=== PATIENT | male | born 1940 | race Caucasian/White ===

== ENCOUNTER 2025-02-14 12:46 | Inpatient (IN) ==
--- NOTE | 2025-02-14 13:59 | Emergency Department Note ---
History of Present Illness General Chief complaint: Urinary Symptoms Stated complaint: URINARY SYMPTOMS Time Seen by Provider: 02/14/25 12:53 Source: patient and family Mode of arrival: ambulatory Limitations: no limitations History of Present Illness Patient is an 84-year-old male with history of BPH, hyperlipidemia, diabetes who presents for generalized weakness and fatigue. He says he has been in and out of the hospital multiple times recently secondary to complications related to a recent aquablation of his prostate. He was recently discharged from the hospital for a UTI and has been taking Levaquin. No fevers, chills, chest pain, abdominal pain. He does report some decreased urinary output. He also reports he has an ureteral stent in place on the left. Home Medications Medication Instructions Recorded Confirmed Type allopurinol 100 mg tablet 100 mg PO DAILY 02/19/20 02/14/25 History aspirin 81 mg chewable tablet 81 mg PO DAILY 02/19/20 02/14/25 History cholecalciferol (vitamin D3) 125 125 mcg PO DAILY 02/19/20 02/14/25 History mcg (5,000 unit) capsule (Dialyvite Vitamin D) folic acid 400 mcg tablet 0.4 mg PO DAILY 02/19/20 02/14/25 History magnesium oxide 500 mg capsule 500 mg PO DAILY 02/19/20 02/14/25 History mecobalamin (vitamin B12) 1,000 1,000 mcg PO WK 02/19/20 02/14/25 History mcg chewable tablet (B12 Active) pioglitazone 30 mg tablet 30 mg PO QPM 02/19/20 02/14/25 History pyridoxine (vitamin B6) 50 mg 50 mg PO DAILY 02/19/20 02/14/25 History tablet insulin glargine 100 unit/mL (3 8 unit subcut BID PRN for sugar 02/14/25 02/14/25 History mL) subcutaneous pen (Lantus level Solostar U-100 Insulin) insulin lispro 100 unit/mL 8 unit subcut QPM 02/14/25 02/14/25 History subcutaneous pen isosorbide mononitrate 30 mg 30 mg PO DAILY 02/14/25 02/14/25 History tablet,extended release 24 hr levofloxacin 750 mg tablet 750 mg PO Q48H 02/14/25 02/14/25 History lisinopril 10 mg tablet 10 mg PO DAILY 02/14/25 02/14/25 History metformin 500 mg tablet,extended 500 mg PO BID 02/14/25 02/14/25 History release 24 hr nystatin 100,000 unit/mL oral 5 ml PO QID 02/14/25 02/14/25 History suspension rosuvastatin 20 mg tablet 20 mg PO QPM 02/14/25 02/14/25 History Allergies Allergy/AdvReac Type Severity Reaction Status Date / Time codeine Allergy Unknown Verified 02/14/25 15:29 Past Med/Surg History Problem List (Updated 02/14/25 @ 16:23 by Manuel Gonzalez MD) Complicated urinary tract infection (Acute) BPH with obstruction/lower urinary tract symptoms Heart trouble High cholesterol Gout Diabetes Arthritis Elevated prostate specific antigen (PSA) Medical History (Updated 02/14/25 @ 16:23 by Manuel Gonzalez MD) Cholecystectomy planned 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 Physical Exam Vital Signs Vital Signs - 24 hr 02/14/25 12:48 02/14/25 13:22 02/14/25 14:00 Temperature 36.6 C Temperature Source Temporal Artery Scan Pulse Rate 85 73 67 Pulse Rate [Apical] Pulse Rhythm Regular Pulse Rhythm [Apical] Pulse Strength [Apical] Respiratory Rate 20 18 Respiratory Effort / Characteristics Non-Labored Spontaneous Respiratory Depth Normal Respiratory Pattern Regular Blood Pressure 122/67 Blood Pressure [Right Arm] Blood Pressure Mean 85 Blood Pressure Mean [Right Arm] Blood Pressure Position Sitting Blood Pressure Position [Right Arm] Pulse Oximetry 100 97 Oxygen Delivery Method Room Air Room Air Sepsis Recent Fever Within 48 Hours No Sepsis New/Unexplained Change in Mental Status N/A Sepsis Action Taken by Nursing No Action Required 02/14/25 14:48 Temperature Temperature Source Pulse Rate Pulse Rate [Apical] 68 Pulse Rhythm Pulse Rhythm [Apical] Regular Pulse Strength [Apical] Normal Respiratory Rate 18 Respiratory Effort / Characteristics Non-Labored Spontaneous Respiratory Depth Normal Respiratory Pattern Regular Blood Pressure Blood Pressure [Right Arm] 134/65 Blood Pressure Mean Blood Pressure Mean [Right Arm] 88 Blood Pressure Position Blood Pressure Position [Right Arm] Sitting Pulse Oximetry 98 Oxygen Delivery Method Room Air Sepsis Recent Fever Within 48 Hours Sepsis New/Unexplained Change in Mental Status Sepsis Action Taken by Nursing See below Constitutional WD/WN, vitals as above Respiratory normal respiratory effort, lungs clear to auscultation Cardiovascular RRR, no murmur, no edema Extremities: + edema (2+ pitting edema b/l ) Gastrointestinal (Abdomen) normal bowel sounds, soft, nontender, no hepatosplenomegaly Medical Decision Making Differential Diagnosis DDx includes but not limited to: MDR UTI, pyelonephritis, KAYLA, CHF exacerbation, ACS, hypothyroidism, acute anemia Medical Records Attestation: I reviewed the patient's medical records. Home Medications Current Medication List: was personally reviewed by me Laboratory Data Attestation: I reviewed the patient's lab results. 02/14/25 14:00 02/14/25 14:00 Lab Results 02/14/25 02/14/25 Range/Units 14:00 14:12 WBC 8.14 (4.8-10.8) K/ul RBC 3.27 L (4.70-6.10) M/uL Hgb 9.9 L (14.0-18.0) g/dl Hct 31.4 L (42.0-52.0) % MCV 96.0 (80.0-100.0) fL MCH 30.3 (25.0-34.0) pg MCHC 31.5 L (32.0-36.0) g/dL RDW Std Deviation 61.8 H (36.4-46.3) fL RDW Coeff of [place] 17.7 H (11.5-14.5) % Plt Count 201 (130-400) K/uL MPV 9.2 L (9.4-12.4) fL Immature Gran % (Auto) 1.4 % Neut % (Auto) 69.9 % Lymph % (Auto) 20.9 % Starr % (Auto) 5.9 % Eos % (Auto) 1.5 % Baso % (Auto) 0.4 % Neut # (Auto) 5.70 (1.40-6.50) K/uL Lymph # (Auto) 1.70 (1.20-3.40) K/uL Starr # (Auto) 0.48 (0.11-0.59) K/uL Eos # (Auto) 0.12 (0.00-0.50) K/uL Baso # (Auto) 0.03 (0.00-0.20) K/uL Immature Gran # (Auto) 0.11 (0.01-0.20) K/uL Sodium 142 (136-145) mmol/L Potassium 4.3 (3.5-5.1) mmol/L Chloride 111 H (98-107) mmol/L Carbon Dioxide 23 (21-32) mmol/L Anion Gap 8 (3-11) BUN 35 H (6-23) mg/dl Creatinine 1.99 H (0.6-1.4) mg/dl Est Cr Clr Drug Dosing Not Reportable eGFR 32.50 BUN/Creatinine Ratio 17.6 (10-20) Glucose 179 H (70-99(Fasting)) mg/dl Calcium 8.3 L (8.6-10.3) mg/dl Total Bilirubin 0.3 (0.2-1.0) mg/dl AST 58 H (13-39) U/L ALT 35 (7-52) U/L Alkaline Phosphatase 80 (34-104) U/L Troponin I High Sens 12.2 (0-20) pg/ml B-Natriuretic Peptide 133 H (0-100) pg/ml Total Protein 6.2 (6.0-8.3) gm/dl Albumin 2.5 L (3.4-5.0) gm/dl Globulin 3.7 (2.5-4.0) gm/dl Albumin/Globulin Ratio 0.7 L (0.9-2) TSH 2.758 (0.300-4.500) uIu/ml Urine Color Yellow Urine Appearance Turbid A (Clear) Urine pH 5.0 (4.5-7.5) Ur Specific [place] 1.019 (1.000-1.030) Urine Protein 2+ H (Negative) Urine Glucose (UA) Negative (Negative) Urine Ketones Trace H (Negative) Urine Blood 3+ H (Negative) Urine Nitrite Negative (Negative) Urine Bilirubin Negative (Negative) Urine Urobilinogen Negative (Negative) Ur Leukocyte Esterase 3+ H (Negative) Urine WBC (Auto) >50 H (0-5) /hpf Urine RBC (Auto) 11-20 H (0-2) /hpf U Hyaline Cast (Auto) >20 H (0-2) /lpf U Epithel Cells (Auto) 3-5 H (0-2) /hpf Urine Bacteria (Auto) 2+ H (None Seen) Urine Comment Imaging Data Radiologist's Impression: Chest X-Ray 02/14/25 13:53 EXAM: Radiograph of the Chest 1 View INDICATION: Weakness TECHNIQUE: Frontal view of the chest. COMPARISON: No relevant prior studies available. FINDINGS: Lungs and pleural spaces: Coarse increased interstitial markings appears chronic. No consolidation or pulmonary edema. No pleural effusion or pneumothorax. Heart: Large cardiac shadow. Coronary bypass changes noted. Mediastinum: Normal contour. Bones/joints: No fracture, erosion or dislocation. Soft tissues: No abnormality noted. No radiopaque foreign body noted. Upper abdomen: No abnormality noted. IMPRESSION: Chronic changes. No evident acute disease. ACT 112: N/A Electronically signed by Yolanda Mcgarry 02-14-2025 2:56 PM ECG Data Attestation: I personally reviewed and interpreted this ECG as follows: Indication: + weakness Rate (beats per minute): 66 Rhythm: + sinus rhythm ECG Intervals/blocks: + Normal QRS, + Normal QT and + Normal LA ECG [place]: + Normal ECG ST segments: + Normal ST segments Comparison ECG Date: no prior available Additional Comments: Baseline artifact or noted. Blood Pressure Blood Pressure Findings: Normal blood pressure MDM Narrative Patient is an 84-year-old male with history of indwelling catheter status post Aquablation and recurrent UTIs who presents for generalized fatigue and weakness. Afebrile nontoxic-appearing. Lab work was ordered and reviewed. No evidence of sepsis or endorgan damage. Cardiac workup nonconcerning. Mild KAYLA with Cr of 1.99. Baseline 1.6-1.8. CXR non-concerning. UA shows evidence of possible peristent infection, though patient does have indwelling hitchcock. Unable to see recent culture results in our EMR. Patient currently on Levaquin outpatient. Will admit for complicated UTI. IV Rocephin ordered. Stable for hospitalist admission. Impression & Plan Complicated urinary tract infection Discharge Plan Visit Data Chief Complaint: Urinary Symptoms Stated Complaint: URINARY SYMPTOMS ED Provider: Manuel Gonzalez Discharge Problem: Complicated urinary tract infection Patient Disposition: Admitted As Inpatient Condition: Good Forms Stand Alone Forms: My [facility] Prescriptions Prescriptions: No Action allopurinol 100 mg tablet 100 mg PO DAILY pioglitazone 30 mg tablet 30 mg PO QPM pyridoxine (vitamin B6) 50 mg tablet 50 mg PO DAILY folic acid 400 mcg tablet 0.4 mg PO DAILY B12 Active 1,000 mcg tablet,chewable 1,000 mcg PO WK aspirin 81 mg tablet,chewable 81 mg PO DAILY cholecalciferol (vitamin D3) [Dialyvite Vitamin D] 125 mcg (5,000 unit) capsule 125 mcg PO DAILY magnesium oxide 500 mg capsule 500 mg PO DAILY nystatin 100,000 unit/mL suspension 5 ml PO QID Rx Instructions: for 10 days isosorbide mononitrate 30 mg tablet extended release 24 hr 30 mg PO DAILY lisinopril 10 mg tablet 10 mg PO DAILY levofloxacin 750 mg tablet 750 mg PO Q48H metformin 500 mg tablet extended release 24 hr 500 mg PO BID insulin lispro 100 unit/mL insulin pen 8 unit SUBCUT QPM rosuvastatin 20 mg tablet 20 mg PO QPM insulin glargine [Lantus Solostar U-100 Insulin] 100 unit/mL (3 mL) insulin pen 8 unit SUBCUT BID PRN (Reason: for sugar level) Rx Instructions: usually only takes 8 units in the evening depending on sugar level Referrals Referrals: Lisa Cheek CRNP [Primary Care Provider] -
[2025-02-14 14:16] LABS: Hematocrit (blood only) 31.4 % (42.0-52.0); Hemoglobin 9.9 g/dl (14.0-18.0); Immature Granulocytes # (auto) 0.11 K/uL (0.01-0.20); Immature Granulocytes % (auto) 1.4 %; Mean Corpuscular Hemoglobin 30.3 pg (25.0-34.0); Mean Corpuscular Volume 96.0 fL (80.0-100.0); Platelet Count 201 K/uL (130-400); RDW Standard Deviation 61.8 fL (36.4-46.3); Red Blood Count 3.27 M/uL (4.70-6.10); White Blood Count 8.14 K/ul (4.8-10.8)
[2025-02-14 14:38] LABS: Alanine Aminotransferase 35 U/L (7-52); Albumin Globulin Ratio 0.7 (0.9-2); Albumin Level 2.5 gm/dl (3.4-5.0); Alkaline Phosphatase 80 U/L (34-104); Anion Gap 8 (3-11); Bilirubin,Total 0.3 mg/dl (0.2-1.0); Blood Urea Nitrogen 35 mg/dl (6-23); Calcium 8.3 mg/dl (8.6-10.3); Carbon Dioxide 23 mmol/L (21-32); Chloride 111 mmol/L (98-107); Globulin 3.7 gm/dl (2.5-4.0); Glucose 179 mg/dl (70-99(Fasting)); Potassium 4.3 mmol/L (3.5-5.1); Sodium 142 mmol/L (136-145); Total Protein 6.2 gm/dl (6.0-8.3)
[2025-02-14 14:54] LABS: Thyroid Stimulating Hormone 2.758 uIu/ml (0.300-4.500)
--- NOTE | 2025-02-14 14:57 | XRay Report ---
EXAM: Radiograph of the Chest 1 View INDICATION: Weakness TECHNIQUE: Frontal view of the chest. COMPARISON: No relevant prior studies available. FINDINGS: Lungs and pleural spaces: Coarse increased interstitial markings appears chronic. No consolidation or pulmonary edema. No pleural effusion or pneumothorax. Heart: Large cardiac shadow. Coronary bypass changes noted. Mediastinum: Normal contour. Bones/joints: No fracture, erosion or dislocation. Soft tissues: No abnormality noted. No radiopaque foreign body noted. Upper abdomen: No abnormality noted. IMPRESSION: Chronic changes. No evident acute disease. ACT 112: N/A Electronically signed by Yolanda Mcgarry 02-14-2025 2:56 PM
[2025-02-14 15:13] LABS: Appearance Urine Turbid (Clear); Bacteria Urine Automated 2+ (None Seen); Cast Urine Automated >20 /lpf (0-2); Glucose Urine UA Negative (Negative); WBC Urine Automated >50 /hpf (0-5)
--- NOTE | 2025-02-14 17:18 | History & Physical Report ---
Date of Service February 14, 2025 Assessment & Plan (1) Bacteremia due to Enterobacter species: Plan: Positive blood cultures on 02/08 with Enterobacter aerogenes. Negative blood cultures on 02/10. Urine culture on 02/08/2025 also positive for Enterobacter aerogenes. Patient was discharged with levofloxacin on 02/11/2025 from [facility] CT a/p (unknown date) reportedly without abscess. - Repeat blood cultures - Follow urine culture - Start ceftriaxone 2g IV daily - Consider ID consult +/- further imaging if renal ultrasound is not informative or if bacteremia is still present (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 Dela Cruz of [facility]. Had a left nephrostomy tube in 01/2025. Presently has a left ureteral stent placed (by Dr. Dela Cruz) which was placed when the left nephrostomy tube was removed. Plan had been to take stent out on 02/09/2025, but he was in the hospital. - Urology consulted - Renal and bladder u/s ordered (3) Complicated urinary tract infection: Plan: See above (4) Chronic kidney disease (CKD): Plan: Baseline Cr ~1.8. Cr on admission was 1.99, so no acute renal failure, but higher than priors. - Avoid IV fluids for now with edema - Monitor Cr - Dose meds for CrCl 30-35 (5) Anemia: Plan: Hgb on admission was 9.9. Normocytic. Likely acute blood loss anemia. Has needed 7 units of blood in the last month. Most recent transfusions was 02/11/2025. - Monitor hgb - Will defer iron studies given recent transfusions - Transfuse for hgb < 7 (6) Diabetes: Plan: Glucose ranges were 135 - 235 at [facility] last admission. Per report, HgbA1c was 6.1% on 12/24/2024. - Hold home metformin - I think the insulin on his home med list is a mistake carried over from prior admission. - Sliding scale insulin in the hospital (7) Coronary artery disease: Plan: S/p CABG in 1992. Unknown surgeon or number of vessels. Reports he "has some stents in there too." No present chest pain, no angina symptoms. - Continue home ASA 81mg, rosuvastatin (8) Gout: Plan: Reports a possible flare of gout at [facility], but nothing at this time. - Continue home allopurinol (9) Thrush, oral: Plan: Likely due to prolonged courses of abx. - Continue nystatin swish and swallow (10) DVT (deep venous thrombosis): Plan: Diagnosed on 12/24/2024. I suspect he had significant bleeding given the multiple transfusions needed over the last 5 weeks. S/p IVC filter at [facility]. - Repeat bilateral LE Dopplers to creative services director extent of current DVTs - Defer SCDs at this time until we determine how much clot burden is presently in legs - Defer active anticoagulation until seen by urology and determine if procedure is needed (11) Weakness: Plan: Generalized weakness. I think multifactorial with illness, anemia, CKD, and medication all playing a role. - PT/OT ordered - Patient open to short stay at rehab if needed Plan DNR/DNI - Patient noted this in presence of and other family. Able to make this decision. History of Present Illness Chief Complaint: Weakness Primary Care Provider: CLOVIS Lai 84 yo M w/ hx of BPH, CKD Stage 3, anemia, and gout who presents with generalized weakness. He has an extremely complex PMH recently. He had a "steam ablation" with Dr. Dela Cruz of [facility] on 12/15/2024. He was in the hospital for 2 days, then discharged with a Morgan catheter in place. He returned to Dr. Dela Cruz about 1 week later and had the Morgan catheter removed. He went to the hospital the day after the Morgan catheter was removed with generalized weakness. He was found to be in urinary retention and apparently had left hydronephrosis. He had a cystoscopy, but it appears they were unable to visualize the left ureteral orifice because he then required a left nephrostomy tube which he reports was inserted on 01/27/2025. At that point, I believe he was [facility]. He was also noted to have a right posterior tibial vein DVT which was diagnosed on 12/24/2024. Because of a large amount of bleeding, he had an IVC filter placed. The patient indicated to me that it was after he had the nephrostomy tube; however, I think it must have been before. Either that or he was on anticoagulation for some time, as he reports he's needed 7 units of blood over the last 6 weeks. He was discharged and was home for only a few days, then went to [facility] with weakness. He was at [facility] from Sunday until Sunday. Reviewing the discharge summary, it appears he actually had Enterobacter aerogenes bacteremia, likely due to the issues. He had 2/2 blood cultures positive for bacteria on 02/08, with negative blood cultures on on 02/10. At this time, he reports ongoing weakness. His example is that this morning, he was only able to stand long enough to pour some cereal and then had to go sit down for at least 30 minutes. He reports some chills, but no fevers. He reports some occ constipation. He reports no fevers, denies n/v, denies hematuria in the last few days, denies chest pain or shortness of breath, denies abdominal pain. Allergies Allergy/AdvReac Type Severity Reaction Status Date / Time codeine Allergy Unknown Verified 02/14/25 15:29 Home Medications Medication Instructions Recorded Confirmed Type allopurinol 100 mg tablet 100 mg PO DAILY 02/19/20 02/14/25 History aspirin 81 mg chewable tablet 81 mg PO DAILY 02/19/20 02/14/25 History cholecalciferol (vitamin D3) 125 125 mcg PO DAILY 02/19/20 02/14/25 History mcg (5,000 unit) capsule (Dialyvite Vitamin D) folic acid 400 mcg tablet 0.4 mg PO DAILY 02/19/20 02/14/25 History magnesium oxide 500 mg capsule 500 mg PO DAILY 02/19/20 02/14/25 History mecobalamin (vitamin B12) 1,000 1,000 mcg PO WK 02/19/20 02/14/25 History mcg chewable tablet (B12 Active) pioglitazone 30 mg tablet 30 mg PO QPM 02/19/20 02/14/25 History pyridoxine (vitamin B6) 50 mg 50 mg PO DAILY 02/19/20 02/14/25 History tablet insulin glargine 100 unit/mL (3 8 unit subcut BID PRN for sugar 02/14/25 History mL) subcutaneous pen (Lantus level Solostar U-100 Insulin) insulin lispro 100 unit/mL 8 unit subcut QPM 02/14/25 02/14/25 History subcutaneous pen isosorbide mononitrate 30 mg 30 mg PO DAILY 02/14/25 02/14/25 History tablet,extended release 24 hr levofloxacin 750 mg tablet 750 mg PO Q48H 02/14/25 02/14/25 History lisinopril 10 mg tablet 10 mg PO DAILY 02/14/25 02/14/25 History metformin 500 mg tablet,extended 500 mg PO BID 02/14/25 02/14/25 History release 24 hr nystatin 100,000 unit/mL oral 5 ml PO QID 02/14/25 02/14/25 History suspension rosuvastatin 20 mg tablet 20 mg PO QPM 02/14/25 02/14/25 History Past Med/Surg History Problem List (Updated 02/14/25 @ 18:06 by Markel Miramontes MD) Weakness DVT (deep venous thrombosis) Bacteremia due to Enterobacter species Thrush, oral DVT prophylaxis Chronic kidney disease (CKD) Anemia Coronary artery disease Complicated urinary tract infection (Acute) BPH with obstruction/lower urinary tract symptoms Heart trouble High cholesterol Gout Diabetes Arthritis Elevated prostate specific antigen (PSA) Medical History Cholecystectomy planned 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 Surgical History H/O heart artery stent Family History Father Lung cancer Social History Smoking Status: Never smoker Preferred Language: Tristanian Feels Safe at Home: Yes Review of Systems Review of Systems: All systems reviewed & are unremarkable except as noted in HPI & below Physical Exam Constitutional: WD/WN, vitals as above Eyes: PERRL, conjunctivae normal, anicteric sclerae Neck: trachea midline, no thyromegaly Respiratory: normal respiratory effort, lungs clear to auscultation Cardiovascular: Rate/Rhythm: regular rate and regular rhythm Heart Sounds: normal S1 and normal S2; no gallop, no murmur and no cardiac rub Extremities: + edema (Bilateral to knees, 2+) Gastrointestinal (Abdomen): normal bowel sounds, soft, nontender, no hepatosplenomegaly Skin: no rashes, warm and dry Left nephrostomy site without erythema or tenderness Psychiatric: Orientation: alert and oriented x 3 Genitourinary: no CVA tenderness Results & Data Results & Data Vital Signs (Past 12 Hours) Vital Signs Temp Pulse Pulse Resp BP BP Pulse Ox 02/14/25 16:00 70 18 135/69 98 02/14/25 14:48 68 18 134/65 98 02/14/25 14:00 67 18 97 02/14/25 13:22 73 02/14/25 12:48 36.6 C 85 20 122/67 100 O2 Del Method 02/14/25 16:00 Room Air 02/14/25 14:48 Room Air 02/14/25 14:00 Room Air 02/14/25 13:22 02/14/25 12:48 Room Air Code Status & VTE Plan VTE Prophylaxis Plan VTE Prophylaxis will be ordered: No PG Care Time/CCT Total # of Minutes Spent Total Time Spent with Patient: Total time spent is greater than 50% in coordination of care (as documented) at patient's floor/unit and/or counseling patient: Coding Level of Care Code 45371 INT INP/OBS CARE 3/75MIN Diagnoses Bacteremia due to Enterobacter species R78.81; B96.89 BPH with obstruction/lower urinary tract symptoms N40.1; N13.8 Complicated urinary tract infection N39.0 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 Chronic kidney disease stage: stage 3 (moderate) Chronic kidney disease stage 3 subtype: stage 3b (GFR 30-44) Iron deficiency anemia due to chronic blood loss D50.0 Anemia type: iron deficiency Iron deficiency anemia type: chronic blood loss Type 2 diabetes mellitus with stage 3b chronic kidney disease, 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 Gout site: foot Gout etiology: due to renal impairment Chronicity: chronic Laterality: right Presence of tophus: without tophus Thrush, oral B37.0 Acute deep vein thrombosis (DVT) of tibial vein of left lower extremity I82.442 DVT location: lower extremity Affected thrombotic vein of extremity: tibial Chronicity: acute Laterality: left Weakness R53.1 (4) Chronic kidney disease (CKD) Chronic kidney disease stage: stage 3 (moderate) Chronic kidney disease stage 3 subtype: stage 3b (GFR 30-44) Qualified Code(s): N18.32 - Chronic kidney disease, stage 3b (5) Anemia Anemia type: iron deficiency Iron deficiency anemia type: chronic blood loss Qualified Code(s): D50.0 - Iron deficiency anemia secondary to blood loss (chronic) (6) Diabetes Diabetes mellitus type: type 2 Diabetes mellitus terminal operator insulin use: without terminal operator use Diabetes mellitus complication status: with kidney complications Diabetes mellitus complication detail: with chronic kidney disease Chronic kidney disease stage: stage 3 (moderate) Chronic kidney disease stage 3 subtype: stage 3b (GFR 30-44) Qualified Code(s): E11.22 - Type 2 diabetes mellitus with diabetic chronic kidney disease; N18.32 - Chronic kidney disease, stage 3b (7) Coronary artery disease Coronary Disease-Associated Artery/Lesion type: unspecified vessel or lesion type [place] vs. transplanted heart: [place] heart Associated angina: without angina Qualified Code(s): I25.10 - Atherosclerotic heart disease of [place] coronary artery without angina pectoris (8) Gout Gout site: foot Gout etiology: due to renal impairment Chronicity: chronic Laterality: right Presence of tophus: without tophus Qualified Code(s): M1A.3710 - Chronic gout due to renal impairment, right ankle and foot, without tophus (tophi) (10) DVT (deep venous thrombosis) DVT location: lower extremity Affected thrombotic vein of extremity: tibial Chronicity: acute Laterality: left Qualified Code(s): I82.442 - Acute embolism and thrombosis of left tibial vein
[2025-02-14] MEDS: cefTRIAXone SODIUM 2,000 MG/50 ML BAG IV STA (18:30)
[2025-02-14] MEDS ORDERED: GLUCOSE 40% GEL 15 GM TUBE PO PRN (20:12)
[2025-02-14] MEDS ORDERED: DEXTROSE 50% 50 ML SYRINGE IV PRN (20:12)
[2025-02-14] MEDS ORDERED: GLUCAGON FOR INJ 1 MG VIAL SQ PRN (20:12)
[2025-02-14] MEDS ORDERED: CARBOHYDRATES FOR HYPOGLYCEMIA PO PRN (20:12)
[2025-02-14] MEDS ORDERED: GLUCOSE 10 TAB/TUBE PO PRN (20:12)
--- NOTE | 2025-02-14 21:26 | Ultrasound Report ---
EXAM: US renal/blad retro comp CLINICAL HISTORY: Left ureter stent TECHNIQUE: A renal and bladder ultrasound was performed using grayscale imaging. COMPARISON: None. FINDINGS: This is a limited exam due to body habitus. Right Kidney: The right kidney measures 10.2 x 5.8 x 4.7 cm. There is a tubular-like structure seen at the right kidney that may indicate a ureteric stent. Simple parapelvic cysts are present, the largest measuring 1.9 x 2.6 cm. No hydronephrosis, calculi, or masses are identified. Renal parenchymal echogenicity is normal. Cortical thickness is within normal limits. The renal pelvis is within normal limits. Left Kidney: The left kidney measures 11.5 x 5.6 x 4.3 cm. No definitive stent is seen in the left kidney. No cyst, hydronephrosis, calculi, or masses are identified. Renal parenchymal echogenicity is normal. Cortical thickness is within normal limits. The renal pelvis is within normal limits. Urinary Bladder: As per the technologist's notes, ureteric stents are seen in the urinary bladder. According to the images, there is urinary bladder wall thickening, which could be an artifact among other possibilities. Dedicated ultrasound evaluation with a full bladder is advised. Image #[id number]. The urinary bladder is not well distended. No calculus or mass is noted. Bilateral ureteral jets are not seen at this time. IMPRESSION: 1. No evidence of hydronephrosis or renal masses. 2. Right renal tubular echogenic structure, most likely a stent. 3. Right renal simple cortical cysts. Electronically signed by Thom Freeman 02-14-2025 9:26 PM
[2025-02-14] MEDS: NYSTATIN SUSP 500,000 U/5 ML UDC PO SCH (22:41)
[2025-02-14] MEDS: ROSUVASTATIN CALCIUM 20 MG TAB PO SCH (22:41)
[2025-02-14] MEDS: INSULIN ASPART PER UNIT CHARGE SC SCH (22:45)
--- NOTE | 2025-02-14 23:53 | Ultrasound Report ---
Exam(s): US VENOUS BILATERAL LOWER EXTREMITIES EXAM: US Duplex Bilateral Lower Extremities Veins CLINICAL HISTORY: Reason for exam: Prior DVT at outside hospital. OTHER: Other Notes: Right leg: ? Thickened wall vs small clot along anterior wall in FV prox. Not-moveable. Bilateral legs: Veins compressible, blood flow seen, , lower legs edema from knee to foot, difficult to compress veins due to large amount of pitting edema, blood flow seen TECHNIQUE: Real-time duplex ultrasound scan of the bilateral lower extremity veins integrating B-mode two-dimensional vascular structure, Doppler spectral analysis, color flow Doppler imaging and compression. COMPARISON: No relevant prior studies available. FINDINGS: Right deep veins: There is possible focal wall thickening in the proximal right femoral vein versus a small nonocclusive thrombus. No DVT in the right common femoral , proximal deep femoral or popliteal veins. The veins demonstrate normal color flow, are normally compressible, with normal phasic flow and/or augmentation response. Right superficial veins: No thrombus in the visualized right great saphenous vein. Left deep veins: No DVT in the left common femoral, femoral, proximal deep femoral or popliteal veins. The veins demonstrate normal color flow, are normally compressible, with normal phasic flow and/or augmentation response. Left superficial veins: No thrombus in the visualized left great saphenous vein. Soft tissues: No acute findings. No popliteal cyst. IMPRESSION: No ultrasound evidence of deep venous thrombosis in the left lower extremity. There is possible focal wall thickening in the proximal right femoral vein versus a small nonocclusive thrombus. Electronically signed by: Dawson Mcfarland MD 02/14/25 23:53 PM
[2025-02-15 06:40] LABS: Hematocrit (blood only) 26.5 % (42.0-52.0); Hemoglobin 8.4 g/dl (14.0-18.0); Mean Corpuscular Hemoglobin 30.3 pg (25.0-34.0); Mean Corpuscular Volume 95.7 fL (80.0-100.0); Platelet Count 185 K/uL (130-400); RDW Standard Deviation 60.4 fL (36.4-46.3); Red Blood Count 2.77 M/uL (4.70-6.10); White Blood Count 7.58 K/ul (4.8-10.8)
[2025-02-15 07:07] LABS: Alanine Aminotransferase 26.0 U/L (7-52); Albumin Globulin Ratio 0.8 (0.9-2); Albumin Level 2.4 gm/dl (3.4-5.0); Alkaline Phosphatase 65.0 U/L (34-104); Anion Gap 6.0 (3-11); Bilirubin,Total 0.3 mg/dl (0.2-1.0); Blood Urea Nitrogen 32.0 mg/dl (6-23); Calcium 8.0 mg/dl (8.6-10.3); Carbon Dioxide 24.0 mmol/L (21-32); Chloride 112.0 mmol/L (98-107); Creatinine Clr Calc Pharmacy 33.3 ml/min; Globulin 3.0 gm/dl (2.5-4.0); Glucose 112.0 mg/dl (70-99(Fasting)); Magnesium 1.7 mg/dl (1.7-2.4); Potassium 4.3 mmol/L (3.5-5.1); Sodium 142.0 mmol/L (136-145); Total Protein 5.4 gm/dl (6.0-8.3)
[2025-02-15 07:27] LABS: Hemoglobin A1C 7.2 % (4.5-5.6)
[2025-02-15] MEDS: ISOSORBIDE MONO EXTENDED REL 30 MG TABCR PO SCH (08:21)
[2025-02-15] MEDS: ASPIRIN 81 MG ECTAB PO SCH (08:21)
--- NOTE | 2025-02-15 10:57 | Hospitalist Progress Note ---
Date of Service February 15, 2025 Assessment & Plan (1) Bacteremia due to Enterobacter species: Plan: Positive blood cultures on 02/08 with Enterobacter aerogenes. Negative blood cultures on 02/10. Urine culture on 02/08/2025 also positive for Enterobacter aerogenes. Patient was discharged with levofloxacin on 02/11/2025 from [facility]. CT a/p (unknown date) reportedly without abscess. - Blood culture and urine culture from 02/14/2025 without growth so far. - Resume levofloxacin 750 mg PO QOD (renal dosing) for Enterobacter/Klebsiella aerogenes which has inducible ampC resistance. - Defer ID consult for now; it appears his bacteremia is largely resolved. 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 Dela Cruz of [facility]. Patient reports he had a left nephrostomy tube in 01/2025. Presently reports he has a left ureteral stent placed (by Dr. Dela Cruz) which was placed when the left nephrostomy tube was removed. Plan had been to take stent out on 02/09/2025, but he was in the hospital. HOWEVER, renal u/s on 02/14/2025 shows RIGHT renal tubular structure, most likely a stent. Un sure which side patient had stent as he does have a small incision site on left flank where I presume his LEFT nephrostomy tube was. U/s showed NO hydronephrosis or bladder distension. - Urology consulted - Will attempt to get further records today (3) Complicated urinary tract infection: Plan: See above (4) Chronic kidney disease (CKD): Plan: Baseline Cr ~1.8. Cr on admission was 1.99, so no acute renal failure, but higher than priors. Back to baseline Cr of 1.8 on 02/15/2025. - Avoid IV fluids for now with edema - Monitor Cr - Dose meds for CrCl 30-35 (5) Anemia: Plan: Hgb on admission was 9.9. Normocytic. Likely acute blood loss anemia and poor bone marrow response. Has needed 7 units of blood in the last month. Most recent transfusions was 02/11/2025. NO signs of active bleeding. - Monitor hgb - Down to 8.4 on 02/15 - Will defer iron studies given recent transfusions - Transfuse for hgb < 7 (6) Diabetes: Plan: Glucose ranges were 135 - 235 at [facility] last admission. Per report, HgbA1c was 6.1% on 12/24/2024. - Hold home metformin - I think the insulin on his home med list is a mistake carried over from prior admission. - Sliding scale insulin in the hospital (7) Coronary artery disease: Plan: S/p CABG in 1992. Unknown surgeon or number of vessels. Reports he "has some stents in there too." No present chest pain, no angina symptoms. - Continue home ASA 81mg, rosuvastatin (8) Gout: Plan: Reports a possible flare of gout at [facility], but nothing at this time. - Continue home allopurinol - Get uric acid with next labs (9) Thrush, oral: Plan: Likely due to prolonged courses of abx. - Continue nystatin swish and swallow (10) DVT (deep venous thrombosis): Plan: Diagnosed on 12/24/2024. I suspect he had significant bleeding given the multiple transfusions needed over the last 5 weeks. S/p IVC filter at [facility]. Bilateral LE Dopplers on 02/14/2025 showed no left DVT and POSSIBLE right proximal femoral vein thickening vs. non-occlusive thrombus. - Added SCDs on 02/15/2025 - Defer active anticoagulation until seen by urology and determine if procedure is needed (11) Weakness: Plan: Generalized weakness. I think multifactorial with illness, anemia, CKD, and medication all playing a role. - PT/OT ordered - Patient open to short stay at rehab if needed Plan DNR/DNI - Patient noted this in presence of and other family. Able to make this decision. Admission and Anticipated Discharge Date Admission Date: February 14, 2025 Subjective Doing well this morning. Had an ok night without too much trouble sleeping. No major pain issues. No fevers/chills overnight. Still with some urinary leakage, but no dysuria. Review of Systems Review of Systems: All systems reviewed & are unremarkable except as noted in Subjective Physical Exam Constitutional: WD/WN, vitals as above Eyes: PERRL, conjunctivae normal, anicteric sclerae Neck: trachea midline, no thyromegaly Respiratory: normal respiratory effort, lungs clear to auscultation Cardiovascular: Rate/Rhythm: regular rate and regular rhythm Heart Sounds: normal S1 and normal S2; no gallop, no murmur and no cardiac rub Extremities: + edema (Bilateral to knees, 2+) Gastrointestinal (Abdomen): normal bowel sounds, soft, nontender, no hepatosplenomegaly Skin: no rashes, warm and dry Psychiatric: Orientation: alert and oriented x 3 Genitourinary: no CVA tenderness Results & Data Results & Data Vital Signs (Past 12 Hours) Vital Signs Temp Pulse Resp BP Pulse Ox O2 Del Method 02/15/25 07:30 36.5 C 82 20 152/70 H 97 Room Air 02/15/25 07:20 Room Air PG Care Time/CCT Total # of Minutes Spent Total Time Spent with Patient: Total time spent is greater than 50% in coordination of care (as documented) at patient's floor/unit and/or counseling patient: Coding Level of Care Code 40362 SUB INP/OBS CARE 2/35MIN Diagnoses Bacteremia due to Enterobacter species R78.81; B96.89 BPH with obstruction/lower urinary tract symptoms N40.1; N13.8 Complicated urinary tract infection N39.0 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 Chronic kidney disease stage: stage 3 (moderate) Chronic kidney disease stage 3 subtype: stage 3b (GFR 30-44) Iron deficiency anemia due to chronic blood loss D50.0 Anemia type: iron deficiency Iron deficiency anemia type: chronic blood loss Type 2 diabetes mellitus with stage 3b chronic kidney disease, 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 Gout site: foot Gout etiology: due to renal impairment Chronicity: chronic Laterality: right Presence of tophus: without tophus Thrush, oral B37.0 Acute deep vein thrombosis (DVT) of tibial vein of left lower extremity I82.442 DVT location: lower extremity Affected thrombotic vein of extremity: tibial Chronicity: acute Laterality: left Weakness R53.1 (4) Chronic kidney disease (CKD) Chronic kidney disease stage: stage 3 (moderate) Chronic kidney disease stage 3 subtype: stage 3b (GFR 30-44) Qualified Code(s): N18.32 - Chronic kidney disease, stage 3b (5) Anemia Anemia type: iron deficiency Iron deficiency anemia type: chronic blood loss Qualified Code(s): D50.0 - Iron deficiency anemia secondary to blood loss (chronic) (6) Diabetes Diabetes mellitus type: type 2 Diabetes mellitus electron gun inspector insulin use: without electron gun inspector use Diabetes mellitus complication status: with kidney complications Diabetes mellitus complication detail: with chronic kidney disease Chronic kidney disease stage: stage 3 (moderate) Chronic kidney disease stage 3 subtype: stage 3b (GFR 30-44) Qualified Code(s): E11.22 - Type 2 diabetes mellitus with diabetic chronic kidney disease; N18.32 - Chronic kidney disease, stage 3b (7) Coronary artery disease Coronary Disease-Associated Artery/Lesion type: unspecified vessel or lesion type [place] vs. transplanted heart: [place] heart Associated angina: without angina Qualified Code(s): I25.10 - Atherosclerotic heart disease of [place] coronary artery without angina pectoris (8) Gout Gout site: foot Gout etiology: due to renal impairment Chronicity: chronic Laterality: right Presence of tophus: without tophus Qualified Code(s): M1A.3710 - Chronic gout due to renal impairment, right ankle and foot, without tophus (tophi) (10) DVT (deep venous thrombosis) DVT location: lower extremity Affected thrombotic vein of extremity: tibial Chronicity: acute Laterality: left Qualified Code(s): I82.442 - Acute embolism and thrombosis of left tibial vein
--- NOTE | 2025-02-15 12:35 | Communication Note ---
Date of Service: February 15, 2025 Summary of records received from patient's son from [facility] and [facility]. Discharge summary from [facility] from 12/23/2024 - 12/27/2024: Presented with generalized fatigue. Recurrent anemia x/p 4 units of PRBCs, one each from 12/23 - 12/26. No bleeding noted on discharge despite being on heparin for DVT. RLE DVT diagnosed on 12/24/2024, though to be provoked. [facility] as his Cr was up to 3.5-3.8 with baseline of ~1.8 and there was thought he might need a renal biopsy. H&P from [facility] on 01/26/2025: Transferred to Critical access hospital on 12/27/2024. Had persistent hematuria. Underwent cysto at that time which revealed a large subtrigonal false passage and necrotic tissue involving a significant portion of the bladder. Left nephrostomy tube placed. Presented on this date for cystoscopy, bilateral retrograde pyelogram, and left ureteral stent. Op report shows mild extravasation of contrast outside the left proximal ureter after the left ureteral stent was placed. Nephrostomy tube appears to have been removed at that time. No issues with right ureter and no hydronephrosis on the right side. A Morgan catheter was inserted at the end of the procedure. Blood culture from 02/08/2025: Enterobacter aerogenes 2/2 bottles Sensitive to cefepime, ciprofloxacin & levofloxacin, ertapenem, gentamicin, imipenem, and Bactrim Insensitive to Augmentin, cefazolin, ceftazidime. Intermediate to ceftriaxone, nitrofurantoin, Zosyn Discharge summary from [facility] from 02/08/2025 - 02/11/2025: Sepsis from Enterobacter aerogenes bacteremia. Blood cultures were 2/2 positive along with urine culture all on 02/08/2025. Negative blood cultures on 02/10/2025. I reviewed today (02/15) and they remained negative on the patient's online portal.
[2025-02-15] MEDS ORDERED: cefTRIAXone SODIUM 2,000 MG/50 ML BAG IV SCH (18:30)
[2025-02-15] MEDS: MELATONIN 3 MG TAB PO PRN (21:19)
[2025-02-16 09:06] LABS: Hematocrit (blood only) 30.2 % (42.0-52.0); Hemoglobin 9.4 g/dl (14.0-18.0); Mean Corpuscular Hemoglobin 30.1 pg (25.0-34.0); Mean Corpuscular Volume 96.8 fL (80.0-100.0); Platelet Count 201 K/uL (130-400); RDW Standard Deviation 61.3 fL (36.4-46.3); Red Blood Count 3.12 M/uL (4.70-6.10); White Blood Count 7.55 K/ul (4.8-10.8)
[2025-02-16 09:39] LABS: Alanine Aminotransferase 25.0 U/L (7-52); Albumin Globulin Ratio 0.8 (0.9-2); Albumin Level 2.6 gm/dl (3.4-5.0); Alkaline Phosphatase 70.0 U/L (34-104); Anion Gap 5.0 (3-11); Bilirubin,Total 0.3 mg/dl (0.2-1.0); Blood Urea Nitrogen 27.0 mg/dl (6-23); Calcium 8.3 mg/dl (8.6-10.3); Carbon Dioxide 26.0 mmol/L (21-32); Chloride 110.0 mmol/L (98-107); Creatinine Clr Calc Pharmacy 36.3 ml/min; Globulin 3.3 gm/dl (2.5-4.0); Glucose 123.0 mg/dl (70-99(Fasting)); Magnesium 1.6 mg/dl (1.7-2.4); Potassium 4.1 mmol/L (3.5-5.1); Sodium 141.0 mmol/L (136-145); Total Protein 5.9 gm/dl (6.0-8.3); Uric Acid 3.6 mg/dl (2.6-7.2)
--- NOTE | 2025-02-16 14:07 | Urology Consultation ---
<Statement entered by Akash Samano MD - 02/17/25 13:52> Chart reviewed plan discussed with LORI, plan reviewed and agree as written. In general I am not sure exactly what is being managed with the ureteral stent, possible there was distal ureteral injury related to aquablation does not appear guaranteed Dr. Dela Cruz was planning to remove stent to some extent appears wo uld depend on appearance of bladder and ureter and may be planning for something a bit more extensive like retrograde pyelogram or stent exchange. Is this contex felt optimal patient would return to [facility] operating urologist for further management given that he knows the patient and his course best. Date of Consultation February 16, 2025 Assessment & Plan (1) Ureteral stent present: (2) Complicated urinary tract infection: Plan Pt afebrile, hemodynamically stable Labs -WBCs 7.55, Hemoglobin 9.4, Creatinine 1.65 (was 1.80 yesterday) Urine culture negative Blood cultures prelim no growth x 24 hours Renal ultrasound-no evidence of hydronephrosis, right renal tubular echogenic structure most likely a stent, right renal cysts No plan for acute intervention Recommend follow-up with his established urologist (Dr. Dela Cruz) for continued care/stent management Continue antibiotics and tailor per culture sensitivities Can check bladder scan/PVR as needed Continue supportive care Urology will follow peripherally, please call with any questions/concerns or changes in patient status History of Present Illness Attending Physician: Kris Gu MD History of Present Illness 84 yo male who presented to the ED with generalized weakness. History obtained from patient and chart review - He had a steam ablation of the prostate with Dr. Dela Cruz of [facility] on 12/15/2024. Was in the hospital for 2 days, then discharged with a Morgan catheter in place. Returned to Dr. Dela Cruz about 1 week later and had the Morgan catheter removed. He went to the hospital the day after the Morgan catheter was removed with generalized weakness. He was found to be in urinary retention and apparently had left hydronephrosis. Transferred to [facility] on 12/27/2024. Had persistent hematuria. Underwent cysto at that time which revealed a large subtrigonal false passage and necrotic tissue involving a significant portion of the bladder. Left nephrostomy tube placed. Presented on this date for cystoscopy, bilateral retrograde pyelogram, and left ureteral stent. Op report shows mild extravasation of contrast outside the left proximal ureter after the left ureteral stent was placed. Nephrostomy tube appears to have been removed at that time. No issues with right ureter and no hydronephrosis on the right side. A Morgan catheter was inserted at the end of the procedure. Patient was seen at bedside. Awake and resting in bed. NAD. External cath with clear yellow urine. Denies any significant pain. No fevers. Reports weakness and poor appetite. Patient reports he was scheduled fo cystoscopy and stent removal with Dr. Dela Cruz on 02/09/25 but was hospitalized at [facility]. Allergies Allergy/AdvReac Type Severity Reaction Status Date / Time codeine Allergy Unknown Verified 02/14/25 15:29 Home Medications Medication Instructions Recorded Confirmed Type allopurinol 100 mg tablet 100 mg PO DAILY 02/19/20 02/14/25 History aspirin 81 mg chewable tablet 81 mg PO DAILY 02/19/20 02/14/25 History cholecalciferol (vitamin D3) 125 125 mcg PO DAILY 02/19/20 02/14/25 History mcg (5,000 unit) capsule (Dialyvite Vitamin D) folic acid 400 mcg tablet 0.4 mg PO DAILY 02/19/20 02/14/25 History magnesium oxide 500 mg capsule 500 mg PO DAILY 02/19/20 02/14/25 History mecobalamin (vitamin B12) 1,000 1,000 mcg PO WK 02/19/20 02/14/25 History mcg chewable tablet (B12 Active) pioglitazone 30 mg tablet 30 mg PO QPM 02/19/20 02/14/25 History pyridoxine (vitamin B6) 50 mg 50 mg PO DAILY 02/19/20 02/14/25 History tablet insulin glargine 100 unit/mL (3 8 unit subcut BID PRN for sugar 02/14/25 02/14/25 History mL) subcutaneous pen (Lantus level Solostar U-100 Insulin) insulin lispro 100 unit/mL 8 unit subcut QPM 02/14/25 02/14/25 History subcutaneous pen isosorbide mononitrate 30 mg 30 mg PO DAILY 02/14/25 02/14/25 History tablet,extended release 24 hr levofloxacin 750 mg tablet 750 mg PO Q48H 02/14/25 02/14/25 History lisinopril 10 mg tablet 10 mg PO DAILY 02/14/25 02/14/25 History metformin 500 mg tablet,extended 500 mg PO BID 02/14/25 02/14/25 History release 24 hr nystatin 100,000 unit/mL oral 5 ml PO QID 02/14/25 02/14/25 History suspension rosuvastatin 20 mg tablet 20 mg PO QPM 02/14/25 02/14/25 History Patient History Medical History Cholecystectomy planned 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 Surgical History H/O heart artery stent Family History Father Lung cancer Social History Smoking Status: Former smoker Hx Alcohol Use: No Hx Substance Use: No Preferred Language: Surinamese Communication Ability: Effective Fruit Distributor Required: No Beliefs That Will Affect Care: None Current Living Situation: Spouse Feels Safe at Home: Yes Assistive Devices: Cane and Walker Review of Systems Review of Systems: All systems reviewed & are unremarkable except as noted in HPI & below Physical Exam Constitutional: no acute distress Respiratory: no respiratory distress and no labored breathing Neurologic: awake Psychiatric: A+Ox3, euthymic affect Genitourinary: External catheter in place Results & Data Vital Signs (Past 12 Hours) Vital Signs Temp Pulse Resp BP Pulse Ox O2 Del Method 02/16/25 10:23 Room Air 02/16/25 08:00 36.3 C L 72 18 136/67 98 Room Air PG Care Time/CCT Total # of Minutes Spent Total Time Spent with Patient: Total time spent is greater than 50% in coordination of care (as documented) at patient's floor/unit and/or counseling patient: Coding Level of Care Code 48985 INT INP/OBS CARE 2/55MIN Diagnoses Ureteral stent present Z96.0 Complicated urinary tract infection N39.0
--- NOTE | 2025-02-16 18:24 | Hospitalist Progress Note ---
Date of Service February 16, 2025 Assessment & Plan (1) Bacteremia due to Enterobacter species: Plan: Positive blood cultures on 02/08 with Enterobacter aerogenes. Negative blood cultures on 02/10. Urine culture on 02/08/2025 also positive for Enterobacter aerogenes. Patient was discharged with levofloxacin on 02/11/2025 from [facility]. CT a/p (unknown date) reportedly without abscess. - Blood culture and urine culture from 02/14/2025 with NGTD - Resume levofloxacin 750 mg PO QOD (renal dosing) for Enterobacter/Klebsiella aerogenes which has inducible ampC resistance. - Defer ID consult for now; it appears his bacteremia is largely resolved. 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 Dela Cruz of [facility]. Patient reports he had a left nephrostomy tube in 01/2025. Presently reports he has a left ureteral stent placed (by Dr. Dela Cruz) which was placed when the left nephrostomy tube was removed. Plan had been to take stent out on 02/09/2025, but he was in the hospital. HOWEVER, renal u/s on 02/14/2025 shows RIGHT renal tubular structure, most likely a stent. Unsure which side patient had stent as he does have a small incision site on left flank where I presume his LEFT nephrostomy tube was. U/s showed NO hydronephrosis or bladder distension. -Urology consulted with no surgical intervention recommendations and will maintain on consult peripherally -will need f/u with Dr. Dela Cruz on d/c for stent removal (3) Complicated urinary tract infection: Plan: See above (4) Chronic kidney disease (CKD): Plan: Baseline Cr ~1.8. Cr on admission was 1.99, so no acute renal failure, but higher than priors. Back to baseline Cr of 1.8 on 02/15/2025. -Avoid IV fluids for now with edema (probably dependent as he has no hx of CHF) -Monitor Cr -Dose meds for CrCl 30-35 (5) Anemia: Plan: Hgb on admission was 9.9. Normocytic. Likely acute blood loss anemia and poor bone marrow response. Has needed 7 units of blood in the last month. Most recent transfusions was 02/11/2025. NO signs of active bleeding. -Monitor hgb - Down to 8.4 on 02/15 -Will defer iron studies given recent transfusions -Transfuse for hgb < 7 (6) Diabetes: Plan: Glucose ranges were 135 - 235 at [facility] last admission. Per report, HgbA1c was 6.1% on 12/24/2024. -Hold home metformin -Sliding scale insulin in the hospital (7) Coronary artery disease: Plan: S/p CABG in 1992. Unknown surgeon or number of vessels. Reports he "has some stents in there too." No present chest pain, no angina symptoms. -Continue home ASA 81mg, rosuvastatin (8) Gout: Plan: Reports a possible flare of gout at [facility], but nothing at this time. -Continue home allopurinol -uric acid 3.6 (9) Thrush, oral: Plan: Likely due to prolonged courses of abx. -Continue nystatin swish and swallow (10) DVT (deep venous thrombosis): Plan: Diagnosed on 12/24/2024. I suspect he had significant bleeding given the multiple transfusions needed over the last 5 weeks. S/p IVC filter at [facility]. Bilateral LE Dopplers on 02/14/2025 showed no left DVT and POSSIBLE right proximal femoral vein thickening vs. non-occlusive thrombus -patient confirms he was never initiated on DOAC as he was hospitalized at [facility] with noted hematuria and anemia requiring multiple blood transfusions when DVT diagnosed -Added SCDs on 02/15/2025 -No urological surgical intervention anticipated per urology consult therefore patient candidate for DOAC as BL LE dopplers on 02/14/25 revealed possible right proximal femoral vein thickening -KUB to confirm IVC filter placement -initiate Eliquis 2.5mg po BID as bilateral dopplers show possible non-occlusive thrombus on 02/14/25, patient without acute signs of bleeding or hematuria, will monitor CBC (11) Weakness: Plan: Generalized weakness-possibly multifactorial related to recent hospitalizations and anemia -PT/OT ordered -patient open to rehab vs homehealth on d/c Plan DNR/DNI - Patient noted this in presence of and other family. Able to make this decision. Admission and Anticipated Discharge Date Admission Date: February 14, 2025 Supervising Physician Co-Signing Physician Notes Attending Attestation - Chart reviewed, care plan d/w CLOVIS Hoffmanels. I agree w/ the howe components of her documentation. Kris Gu MD Subjective Patient has no complaints today. Concerned that he was discharged recently from [facility] and still has weakness as he has been frequently hospitalized. Denies current urinary symptoms. Physical Exam Physical Exam: GENERAL APPEARANCE: A&O. Lying in bed comfortably. NAD. SKIN: Normal color without rashes or lesions. Normal turgor. HEENT: Head AT/NC. Buccal mucosa is moist and pink wih noted white coating to tongue. NECK: No jugular venous distention. No thyroid enlargement. There is no lymphadenopathy. HEART: RRR without m/g/r LUNGS: Normal inspiratory effort. CTA without w/r/r ABDOMEN: No guarding or rigidity. Normoactive BS in all four quadrants. Abdomen soft and NT. : External cath with clear, yellow urine draining in bag. MSK: No bony gross/deformities throughout. ROM intact. EXTREMITIES: No edema, No peripheral cyanosis. Neuro: CN 2-12 grossly intact. No focal neuro deficits PSYCHIATRIC: Normal affect. Eye contact is good. Speech is normal rate and content. Responses are appropriate. Results & Data Results & Data Vital Signs (Past 12 Hours) Vital Signs Temp Pulse Resp BP Pulse Ox O2 Del Method 02/16/25 16:43 36.7 C 62 14 152/68 H 97 Room Air 02/16/25 10:23 Room Air 02/16/25 08:00 36.3 C L 72 18 136/67 98 Room Air PG Care Time/CCT Total # of Minutes Spent Total Time Spent with Patient: Total time spent is greater than 50% in coordination of care (as documented) at patient's floor/unit and/or counseling patient: Coding Level of Care Code 62434 SUB INP/OBS CARE 3/50MIN Diagnoses Bacteremia due to Enterobacter species R78.81; B96.89 BPH with obstruction/lower urinary tract symptoms N40.1; N13.8 Complicated urinary tract infection N39.0 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 Chronic kidney disease stage: stage 3 (moderate) Chronic kidney disease stage 3 subtype: stage 3b (GFR 30-44) Iron deficiency anemia due to chronic blood loss D50.0 Anemia type: iron deficiency Iron deficiency anemia type: chronic blood loss Type 2 diabetes mellitus with stage 3b chronic kidney disease, 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; N18.32 Chronic kidney disease stage: stage 3 (moderate) Chronic kidney disease stage 3 subtype: stage 3b (GFR 30-44) Diabetes mellitus complication detail: with chronic kidney disease Diabetes mellitus complication status: with kidney complications Diabetes mellitus snf insulin use: without buttermaker continuous churn use Diabetes mellitus type: type 2 Coronary artery disease involving [place] heart without angina pectoris, unspecified vessel or lesion type I25.10 Associated angina: without angina Coronary Disease-Associated Artery/Lesion type: unspecified vessel or lesion type [place] vs. 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 Chronicity: chronic Gout etiology: due to renal impairment Gout site: foot Laterality: right Presence of tophus: without tophus Thrush, oral B37.0 Acute deep vein thrombosis (DVT) of tibial vein of left lower extremity I82.442 Affected thrombotic vein of extremity: tibial Chronicity: acute DVT location: lower extremity Laterality: left Weakness R53.1 (4) Chronic kidney disease (CKD) Chronic kidney disease stage: stage 3 (moderate) Chronic kidney disease stage 3 subtype: stage 3b (GFR 30-44) Qualified Code(s): N18.32 - Chronic kidney disease, stage 3b (5) Anemia Anemia type: iron deficiency Iron deficiency anemia type: chronic blood loss Qualified Code(s): D50.0 - Iron deficiency anemia secondary to blood loss (chronic) (6) Diabetes Chronic kidney disease stage: stage 3 (moderate) Chronic kidney disease stage 3 subtype: stage 3b (GFR 30-44) Diabetes mellitus complication detail: with chronic kidney disease Diabetes mellitus complication status: with kidney complications Diabetes mellitus snf insulin use: without snf use Diabetes mellitus type: type 2 Qualified Code(s): E11.22 - Type 2 diabetes mellitus with diabetic chronic kidney disease; N18.32 - Chronic kidney disease, stage 3b (7) Coronary artery disease Associated angina: without angina Coronary Disease-Associated Artery/Lesion type: unspecified vessel or lesion type [place] vs. transplanted heart: [place] heart Qualified Code(s): I25.10 - Atherosclerotic heart disease of [place] coronary artery without angina pectoris (8) Gout Chronicity: chronic Gout etiology: due to renal impairment Gout site: foot Laterality: right Presence of tophus: without tophus Qualified Code(s): M1A.3710 - Chronic gout due to renal impairment, right ankle and foot, without tophus (tophi) (10) DVT (deep venous thrombosis) Affected thrombotic vein of extremity: tibial Chronicity: acute DVT location: lower extremity Laterality: left Qualified Code(s): I82.442 - Acute embolism and thrombosis of left tibial vein
--- NOTE | 2025-02-16 18:32 | XRay Report ---
Abdominal radiograph, one view History: Abdominal pain Comparison: None Findings: Single AP view of the abdomen performed. The bowel gas pattern appears nonobstructive. IVC filter is seen in the abdomen to the right of the spine in the expected location of the IVC. A left nephroureteral stent in place. No pneumatosis or portal venous gas. No abnormal calcifications project over the abdomen. No acute abnormality of the bony structures. Impression: IVC filter in the expected position Electronically signed by Javi Alicea 02-16-2025 6:32 PM
[2025-02-16] MEDS: MAGNESIUM OXIDE 400 MG TAB PO SCH ×2 (18:51→20:41)
[2025-02-16] MEDS: APIXABAN 2.5 MG TAB PO SCH (20:41)
[2025-02-17] MEDS: POLYETHYLENE (MIRALAX) 17 GM PACK PO PRN (06:09)
[2025-02-17 08:32] LABS: Hematocrit (blood only) 29.4 % (42.0-52.0); Hemoglobin 9.2 g/dl (14.0-18.0); Mean Corpuscular Hemoglobin 30.4 pg (25.0-34.0); Mean Corpuscular Volume 97.0 fL (80.0-100.0); Platelet Count 196 K/uL (130-400); RDW Standard Deviation 62.4 fL (36.4-46.3); Red Blood Count 3.03 M/uL (4.70-6.10); White Blood Count 6.83 K/ul (4.8-10.8)
[2025-02-17 08:52] LABS: Alanine Aminotransferase 21.0 U/L (7-52); Albumin Globulin Ratio 0.8 (0.9-2); Albumin Level 2.6 gm/dl (3.4-5.0); Alkaline Phosphatase 68.0 U/L (34-104); Anion Gap 5.0 (3-11); Bilirubin,Total 0.3 mg/dl (0.2-1.0); Blood Urea Nitrogen 31.0 mg/dl (6-23); Calcium 8.1 mg/dl (8.6-10.3); Carbon Dioxide 26.0 mmol/L (21-32); Chloride 109.0 mmol/L (98-107); Creatinine Clr Calc Pharmacy 33.3 ml/min; Globulin 3.2 gm/dl (2.5-4.0); Glucose 154.0 mg/dl (70-99(Fasting)); Magnesium 1.6 mg/dl (1.7-2.4); Potassium 4.5 mmol/L (3.5-5.1); Sodium 140.0 mmol/L (136-145); Total Protein 5.8 gm/dl (6.0-8.3)
[2025-02-17] MEDS: MAGNESIUM SULFATE / D5W 1 GM/100 ML BAG IV SCH (09:50)
--- NOTE | 2025-02-17 10:19 | Electrocardiogram Report ---
Test Reason : Blood Pressure : */* mmHG Vent. Rate : 66 BPM Atrial Rate : 66 BPM P-R Int : 180 ms QRS Dur : 88 ms QT Int : 412 ms P-R-T Axes : 63 18 28 degrees QTcB Int : 431 ms Normal sinus rhythm Normal ECG No previous ECGs available Confirmed by Elmer Cisneros ([id number]) on 02/17/2025 10:18:43 AM Referred By: REFERRED SELF Confirmed By: Elmer Cisneros
--- NOTE | 2025-02-17 16:32 | Hospitalist Progress Note ---
Date of Service February 17, 2025 Assessment & Plan (1) Bacteremia due to Enterobacter species: Plan: Positive blood cultures on 02/08 with Enterobacter aerogenes. Negative blood cultures on 02/10. Urine culture on 02/08/2025 also positive for Enterobacter aerogenes. Patient was discharged with levofloxacin on 02/11/2025 from [facility]. CT a/p (unknown date) reportedly without abscess. -Blood culture and urine culture from 02/14/2025 with NGTD -Levofloxacin 750 mg PO QOD (renal dosing) for Enterobacter/Klebsiella aerogenes which has inducible ampC resistance, according to external records patient received dose of Levaquin on discharge day of 02/11/2025 from [facility] with prescription for Levaquin 750 mg every other day x 3 doses for 6 days upon d/c-->>with dosing of Levaquin on 02/11/25 from [facility] in conjunction home dose on 02/11/25 with dosing during this hospital stay on 02/15/25 & 02/17/25 patient has completed course of recommended antibiotic therapy -Defer ID consult for now; NGTD on BC and UC -secured records from [facility] with d/c diagnosis on 02/11/25 of sepsis with Enterobacter aerogenes bacteremia due to acute cystitis with hematuria possibly related to ureteral stent and recommendation (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 Dela Cruz of [facility]. Patient reports he had a left nephrostomy tube in 01/2025. Presently reports he has a left ureteral stent placed (by Dr. Dela Cruz) which was placed when the left nephrostomy tube was removed. Plan had been to take stent out on 02/09/2025, but he was in the hospital. HOWEVER, renal u/s on 02/14/2025 shows RIGHT renal tubular structure, most likely a stent. Unsure which side patient had stent as he does have a small incision site on left flank where I presume his LEFT nephrostomy tube was. U/s showed NO hydronephrosis or bladder distension -Urology consulted with no surgical intervention recommendations and will maintain on consult peripherally -renal ultrasound on 02/14/2025 with no evidence of hydronephrosis or renal masses, right renal tubular echogenic structure, most likely a stent, KUB complete on 02/16/2025 to confirm IVC filter placement with noted LEFT nephroureteral stent in place, discussed imaging results with radiology and higher sensitivity appreciation with KUB imaging for confirms stent placement on the left versus renal ultrasound with possible right stent-->> external records reviewed from [facility] and operative report from Jose De Jesus with proper placem ent of left ureteral stent on 01/27/2025 -will need f/u with Dr. Dela Cruz on d/c for stent removal (3) Complicated urinary tract infection: Plan: See above (4) Chronic kidney disease (CKD): Plan: Baseline Cr ~1.8. Cr on admission was 1.99, so no acute renal failure, but higher than priors. Back to baseline Cr of 1.8 on 02/15/2025. -Avoid IV fluids for now with edema (probably dependent as he has no hx of CHF) -Monitor Cr -Dose meds for CrCl 30-35 (5) Anemia: Plan: Hgb on admission was 9.9. Normocytic. Likely acute blood loss anemia and poor bone marrow response. Has needed 7 units of blood in the last month. Most recent transfusions was 02/11/2025. NO signs of active bleeding. -Monitor hgb - Down to 8.4 on 02/15 -Will defer iron studies given recent transfusions -Transfuse for hgb < 7 -may need outpatient colonoscopy on d/c (6) Diabetes: Plan: Glucose ranges were 135 - 235 at [facility] last admission. Per report, HgbA1c was 6.1% on 12/24/2024. -Hold home metformin -Sliding scale insulin in the hospital (7) Coronary artery disease: Plan: S/p CABG in 1992. Unknown surgeon or number of vessels. Reports he "has some stents in there too." No present chest pain, no angina symptoms. -Continue home ASA 81mg, rosuvastatin (8) Gout: Plan: Reports a possible flare of gout at [facility], but nothing at this time. -Continue home allopurinol -uric acid 3.6 (9) Thrush, oral: Plan: Likely due to prolonged courses of abx. -Continue nystatin swish and swallow (10) DVT (deep venous thrombosis): Plan: Diagnosed on 12/24/2024. I suspect he had significant bleeding given the multiple transfusions needed over the last 5 weeks. S/p IVC filter at [facility]. Bilateral LE Dopplers on 02/14/2025 showed no left DVT and POSSIBLE right proximal femoral vein thickening vs. non-occlusive thrombus -patient confirms he was never initiated on DOAC as he was hospitalized at [facility] with noted hematuria and anemia requiring multiple blood transfusions when DVT diagnosed -Added SCDs on 02/15/2025 -No urological surgical intervention anticipated per urology consult therefore patient candidate for DOAC as BL LE dopplers on 02/14/25 revealed possible right proximal femoral vein thickening -KUB to confirm IVC filter placement -initiate Eliquis 2.5mg po BID as bilateral dopplers show possible right non- occlusive thrombus on 02/14/25, patient without acute signs of bleeding or hematuria, will monitor CBC, HOLD aspirin for now to monitor for bleeding as patient is on for secondary prevention related to hx of CABG and cardiac stents (11) Weakness: Plan: Generalized weakness-possibly multifactorial related to recent hospitalizations and anemia -PT/OT ordered -patient open to home health on d/c (12) Ureteral stent present: (13) Presence of IVC filter: Plan DNR/DNI - Patient noted this in presence of and other family. Able to make this decision. Admission and Anticipated Discharge Date Admission Date: February 14, 2025 Supervising Physician Co-Signing Physician Notes Attending Attestation - Chart reviewed, care plan d/w CLOVIS Dawson. I agree w/ the howe components of her documentation with the following additions: --IVC filter status --left-sided ureteral stent in place Kris Gu MD Subjective Patient has no complaints today. Urine is clear, yellow with no hematuria. Still with condom catheter. Appetite is good. Worked with PT yesterday and was able to ambulate 180 feet with no assistive devices. Review of Systems Review of Systems: All systems reviewed & are unremarkable except as noted in Subjective Physical Exam Physical Exam: GENERAL APPEARANCE: A&O. Lying in bed comfortably. NAD. SKIN: Normal color without rashes or lesions. Normal turgor. HEENT: Head AT/NC. Buccal mucosa is moist and pink with noted white coating to tongue. NECK: No jugular venous distention. No thyroid enlargement. There is no lymphadenopathy. HEART: RRR without m/g/r LUNGS: Normal inspiratory effort. CTA without w/r/r ABDOMEN: No guarding or rigidity. Normoactive BS in all four quadrants. Abdomen soft and NT. : External cath with clear, yellow urine draining in bag. MSK: No bony gross/deformities throughout. ROM intact. EXTREMITIES: No edema, No peripheral cyanosis. Neuro: CN 2-12 grossly intact. No focal neuro deficits PSYCHIATRIC: Normal affect. Eye contact is good. Speech is normal rate and content. Responses are appropriate. Results & Data Results & Data Vital Signs (Past 12 Hours) Vital Signs Temp Pulse Resp BP Pulse Ox O2 Del Method 02/17/25 15:27 36.8 C 63 18 136/67 96 Room Air 02/17/25 07:45 36.6 C 59 L 18 144/70 H 98 Room Air PG Care Time/CCT Total # of Minutes Spent Total Time Spent with Patient: Total time spent is greater than 50% in coordination of care (as documented) at patient's floor/unit and/or counseling patient: Coding Level of Care Code 00059 SUB INP/OBS CARE 3/50MIN Diagnoses Bacteremia due to Enterobacter species R78.81; B96.89 BPH with obstruction/lower urinary tract symptoms N40.1; N13.8 Complicated urinary tract infection N39.0 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 Chronic kidney disease stage: stage 3 (moderate) Chronic kidney disease stage 3 subtype: stage 3b (GFR 30-44) Iron deficiency anemia due to chronic blood loss D50.0 Anemia type: iron deficiency Iron deficiency anemia type: chronic blood loss Type 2 diabetes mellitus with stage 3b chronic kidney disease, 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; N18.32 Chronic kidney disease stage: stage 3 (moderate) Chronic kidney disease stage 3 subtype: stage 3b (GFR 30-44) Diabetes mellitus complication detail: with chronic kidney disease Diabetes mellitus complication status: with kidney complications Diabetes mellitus fpc insulin use: without superintendent container terminal use Diabetes mellitus type: type 2 Coronary artery disease involving [place] heart without angina pectoris, unspecified vessel or lesion type I25.10 Associated angina: without angina Coronary Disease-Associated Artery/Lesion type: unspecified vessel or lesion type [place] vs. 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 Chronicity: chronic Gout etiology: due to renal impairment Gout site: foot Laterality: right Presence of tophus: without tophus Thrush, oral B37.0 Acute deep vein thrombosis (DVT) of tibial vein of left lower extremity I82.442 Affected thrombotic vein of extremity: tibial Chronicity: acute DVT location: lower extremity Laterality: left Weakness R53.1 Ureteral stent present Z96.0 Presence of IVC filter Z95.828 (4) Chronic kidney disease (CKD) Chronic kidney disease stage: stage 3 (moderate) Chronic kidney disease stage 3 subtype: stage 3b (GFR 30-44) Qualified Code(s): N18.32 - Chronic kidney disease, stage 3b (5) Anemia Anemia type: iron deficiency Iron deficiency anemia type: chronic blood loss Qualified Code(s): D50.0 - Iron deficiency anemia secondary to blood loss (chronic) (6) Diabetes Chronic kidney disease stage: stage 3 (moderate) Chronic kidney disease stage 3 subtype: stage 3b (GFR 30-44) Diabetes mellitus complication detail: with chronic kidney disease Diabetes mellitus complication status: with kidney complications Diabetes mellitus superintendent container terminal insulin use: without superintendent container terminal use Diabetes mellitus type: type 2 Qualified Code(s): E11.22 - Type 2 diabetes mellitus with diabetic chronic kidney disease; N18.32 - Chronic kidney disease, stage 3b (7) Coronary artery disease Associated angina: without angina Coronary Disease-Associated Artery/Lesion type: unspecified vessel or lesion type [place] vs. transplanted heart: [place] heart Qualified Code(s): I25.10 - Atherosclerotic heart disease of [place] coronary artery without angina pectoris (8) Gout Chronicity: chronic Gout etiology: due to renal impairment Gout site: foot Laterality: right Presence of tophus: without tophus Qualified Code(s): M1A.3710 - Chronic gout due to renal impairment, right ankle and foot, without tophus (tophi) (10) DVT (deep venous thrombosis) Affected thrombotic vein of extremity: tibial Chronicity: acute DVT location: lower extremity Laterality: left Qualified Code(s): I82.442 - Acute embolism and thrombosis of left tibial vein
[2025-02-18 08:29] LABS: Hematocrit (blood only) 27.4 % (42.0-52.0); Hemoglobin 8.8 g/dL (14.0-18.0); Mean Corpuscular Hemoglobin 30.6 pg (25.0-34.0); Mean Corpuscular Volume 95.1 fL (80.0-100.0); Platelet Count 194 K/uL (130-400); RDW Standard Deviation 60.7 fL (36.4-46.3); Red Blood Count 2.88 M/uL (4.70-6.10); White Blood Count 7.71 K/ul (4.8-10.8)
[2025-02-18 09:26] LABS: Anion Gap 7.0 (3-11); Blood Urea Nitrogen 30.0 mg/dl (6-23); Calcium 8.0 mg/dl (8.6-10.3); Carbon Dioxide 24.0 mmol/L (21-32); Chloride 109.0 mmol/L (98-107); Creatinine Clr Calc Pharmacy 34.5 ml/min; Glucose 127.0 mg/dl (70-99(Fasting)); Potassium 4.5 mmol/L (3.5-5.1); Sodium 140.0 mmol/L (136-145)
[2025-02-18 09:37] LABS: Magnesium 1.9 mg/dl (1.7-2.4)
--- NOTE | 2025-02-18 12:23 | Hospitalist Progress Note ---
Date of Service February 18, 2025 Assessment & Plan (1) Bacteremia due to Enterobacter species: Plan: Positive blood cultures on 02/08 with Enterobacter aerogenes. Negative blood cultures on 02/10. Urine culture on 02/08/2025 also positive for Enterobacter aerogenes. Patient was discharged with levofloxacin on 02/11/2025 from [facility] CT a/p (unknown date) reportedly without abscess. -NGTD on BC/UC from 02/14/25 -Levofloxacin 750 mg PO QOD (renal dosing) for Enterobacter/Klebsiella aerogenes which has inducible ampC resistance, according to external records patient received dose of Levaquin on discharge day of 02/11/2025 from [facility] with prescription for Levaquin 750 mg every other day x 3 doses for 6 days upon d/c-->>with dosing of Levaquin on 02/11/25 from [facility] in conjunction home dose on 02/13/25 with dosing during this hospital stay on 02/15/25 & 02/17/25 patient has completed course of recommended antibiotic therapy -secured records from [facility] with d/c diagnosis on 02/11/25 of sepsis with Enterobacter aerogenes bacteremia due to acute cystitis with hematuria possibly related to ureteral stent -ID consult for input regarding completed course of antimicrobial treatment in setting of ureteral stent (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 Dela Cruz of [facility]. Patient reports he had a left nephrostomy tube in 01/2025. Presently reports he has a left ureteral stent placed (by Dr. Dela Cruz) which was placed when the left nephrostomy tube was removed. Plan had been to take stent out on 02/09/2025, but he was in the hospital. HOWEVER, renal u/s on 02/14/2025 shows RIGHT renal tubular structure, most likely a stent. Unsure which side patient had stent as he does have a small incision site on left flank where I presume his LEFT nephrostomy tube was. U/s showed NO hydronephrosis or bladder distension -Urology consulted with no surgical intervention recommendations and will maintain on consult peripherally -renal ultrasound on 02/14/2025 with no evidence of hydronephrosis or renal masses, right renal tubular echogenic structure, most likely a stent, KUB complete on 02/16/2025 to confirm IVC filter placement with noted LEFT nephroureteral stent in place, discussed imaging results with radiology and higher sensitivity appreciation with KUB imaging for confirms stent placement on the left versus renal ultrasound with possible right stent-->> external records reviewed [facility] and operative report from Dr. Dela Cruz with proper placement of left ureteral stent on 01/27/2025 -discussed with [facility] urology team regarding case in setting of recent Enterobacter bacteremia and potential cause r/t left stent placed per Dr. Dela Cruz and as patient is stable he can f/u with Dr. Dela Cruz for evaluation of stent and if he is unable to get a f/u with Dr. Dela Cruz in a time sensitive manner [facility] is willing to see patient within 2-3 weeks to determine next steps -PSA WNL (3) Complicated urinary tract infection: Plan: See above (4) Chronic kidney disease (CKD): Plan: Baseline Cr ~1.8. Cr on admission was 1.99, so no acute renal failure, but higher than priors. Back to baseline Cr of 1.8 on 02/15/2025. -Avoid IV fluids for now with edema (probably dependent as he has no hx of CHF) -Monitor Cr-->>1.74 -Dose meds for CrCl 30-35 (5) Anemia: Plan: Hgb on admission was 9.9. Normocytic. Likely acute blood loss anemia and poor bone marrow response. Has needed 7 units of blood in the last month. Most recent transfusions was 02/11/2025. NO signs of active bleeding. -Monitor H/H-->8.8/27.4 -Will defer iron studies given recent transfusions -Transfuse for hgb < 7 (6) Diabetes: Plan: Glucose ranges were 135 - 235 at [facility] last admission. Per report, HgbA1c was 6.1% on 12/24/2024. -Hold home metformin -Sliding scale insulin in the hospital (7) Coronary artery disease: Plan: S/p CABG in 1992. Unknown surgeon or number of vessels. Reports he "has some sylvie nts in there too." No present chest pain, no angina symptoms. -Continue home ASA 81mg, rosuvastatin (8) Gout: Plan: Reports a possible flare of gout at [facility], but nothing at this time. -Continue home allopurinol -uric acid 3.6 (9) Thrush, oral: Plan: Likely due to prolonged courses of abx. -Continue nystatin swish and swallow (10) DVT (deep venous thrombosis): Plan: Diagnosed on 12/24/2024. I suspect he had significant bleeding given the multiple transfusions needed over the last 5 weeks. S/p IVC filter at [facility]. Bilateral LE Dopplers on 02/14/2025 showed no left DVT and POSSIBLE right proximal femoral vein thickening vs. non-occlusive thrombus -patient confirms he was never initiated on DOAC as he was hospitalized at [facility] with noted hematuria and anemia requiring multiple blood transfusions when DVT diagnosed -Added SCDs on 02/15/2025 -No urological surgical intervention anticipated per urology consult therefore patient candidate for DOAC as BL LE dopplers on 02/14/25 revealed possible right proximal femoral vein thickening -KUB to confirm IVC filter placement -Eliquis 2.5mg po BID as bilateral dopplers show possible right non-occlusive thrombus on 02/14/25, patient without acute signs of bleeding or hematuria, will monitor CBC, HOLD aspirin for now to monitor for bleeding as patient is on for secondary prevention related to hx of CABG and cardiac stents (11) Weakness: Plan: Generalized weakness-possibly multifactorial related to recent hospitalizations and anemia -PT/OT ordered -patient open to rehab vs homehealth on d/c Plan DNR/DNI - Patient noted this in presence of and other family. Able to make this decision. Admission and Anticipated Discharge Date Admission Date: February 14, 2025 Subjective Patient has no complaints today. Review of Systems Review of Systems: All systems reviewed & are unremarkable except as noted in Subjective Physical Exam Physical Exam: GENERAL APPEARANCE: A&O. Lying in bed comfortably. NAD. SKIN: Normal color without rashes or lesions. Normal turgor. HEENT: Head AT/NC. Buccal mucosa is moist and pink with noted white coating to tongue. NECK: No jugular venous distention. No thyroid enlargement. There is no lymphadenopathy. HEART: RRR without m/g/r LUNGS: Normal inspiratory effort. CTA without w/r/r ABDOMEN: No guarding or rigidity. Normoactive BS in all four quadrants. Abdomen soft and NT. : External cath with clear, yellow urine draining in bag. MSK: No bony gross/deformities throughout. ROM intact. EXTREMITIES: No edema, No peripheral cyanosis. Neuro: CN 2-12 grossly intact. No focal neuro deficits PSYCHIATRIC: Normal affect. Eye contact is good. Speech is normal rate and content. Responses are appropriate. Results & Data Results & Data Vital Signs (Past 12 Hours) Vital Signs Temp Pulse Resp BP BP Pulse Ox O2 Del Method 02/18/25 07:17 36.8 C 59 L 16 153/68 H 94 Room Air 02/18/25 00:07 36.7 C 55 L 20 142/64 H 94 Room Air Laboratory Results Labs reviewed: CBC, BMP, PSA PG Care Time/CCT Total # of Minutes Spent Total Time Spent with Patient: Total time spent is greater than 50% in coordination of care (as documented) at patient's floor/unit and/or counseling patient: Coding Level of Care Code 36553 SUB INP/OBS CARE 3/50MIN Diagnoses Bacteremia due to Enterobacter species R78.81; B96.89 BPH with obstruction/lower urinary tract symptoms N40.1; N13.8 Complicated urinary tract infection N39.0 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 Chronic kidney disease stage: stage 3 (moderate) Chronic kidney disease stage 3 subtype: stage 3b (GFR 30-44) Iron deficiency anemia due to chronic blood loss D50.0 Anemia type: iron deficiency Iron deficiency anemia type: chronic blood loss Type 2 diabetes mellitus with stage 3b chronic kidney disease, 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 Chronicity: chronic Gout etiology: due to renal impairment Gout site: foot Laterality: right Presence of tophus: without tophus Thrush, oral B37.0 Acute deep vein thrombosis (DVT) of tibial vein of left lower extremity I82.442 Affected thrombotic vein of extremity: tibial Chronicity: acute DVT location: lower extremity Laterality: left Weakness R53.1 (4) Chronic kidney disease (CKD) Chronic kidney disease stage: stage 3 (moderate) Chronic kidney disease stage 3 subtype: stage 3b (GFR 30-44) Qualified Code(s): N18.32 - Chronic kidney disease, stage 3b (5) Anemia Anemia type: iron deficiency Iron deficiency anemia type: chronic blood loss Qualified Code(s): D50.0 - Iron deficiency anemia secondary to blood loss (chronic) (6) Diabetes Chronic kidney disease stage: stage 3 (moderate) Chronic kidney disease stage 3 subtype: stage 3b (GFR 30-44) Diabetes mellitus complication detail: with chronic kidney disease Diabetes mellitus complication status: with kidney complications Diabetes mellitus alf insulin use: without alf use Diabetes mellitus type: type 2 Qualified Code(s): E11.22 - Type 2 diabetes mellitus with diabetic chronic kidney disease; N18.32 - Chronic kidney disease, stage 3b (7) Coronary artery disease Associated angina: without angina Coronary Disease-Associated Artery/Lesion type: unspecified vessel or lesion type [place] vs. transplanted heart: mus[place] heart Qualified Code(s): I25.10 - Atherosclerotic heart disease of [place] coronary artery without angina pectoris (8) Gout Chronicity: chronic Gout etiology: due to renal impairment Gout site: foot Laterality: right Presence of tophus: without tophus Qualified Code(s): M1A.3710 - Chronic gout due to renal impairment, right ankle and foot, without tophus (tophi) (10) DVT (deep venous thrombosis) Affected thrombotic vein of extremity: tibial Chronicity: acute DVT location: lower extremity Laterality: left Qualified Code(s): I82.442 - Acute embolism and thrombosis of left tibial vein
--- NOTE | 2025-02-18 13:08 | Urology Progress Note ---
<Statement entered by Akash Samano MD - 02/19/25 08:03> Chart reviewed Patient discussed plan reviewed and agree as written. - unclear what management is planned by Dr. Dela Cruz appears patient may have had bladder and/or ureteral injury in course of aquablation and that he was planning to assess state of bladder and ureter at time of stent removal. We do believe this is in the patients best interest as that physician knows more about the operative course and planned management than we do and likely has a plan in place for further management of this operative complication which we would like not to disrupt - if follow care cannot be arranged with the patient's surgeon we are of course available to see him in our clinic for further management but do not think this would be in the patient's best interests Date of Service February 18, 2025 Assessment & Plan (1) Complicated urinary tract infection: (2) Ureteral stent present: Plan Pt afebrile, hemodynamically stable Labs -WBCs 7.71, Hemoglobin 8.8, Creatinine 1.74 Urine culture negative Blood cultures prelim no growth x 48 hours Had prior Enterobacter Bacteremia 02/08/25 per notes during admission at [facility] ID consulted per primary team KUB 02/16 showed a left stent in place. No plan for acute intervention. Patient is stable and urine/blood cultures are negative. Would be optimal for the patient to return to his operating urologist for further management given that he knows the patient and his course best. If he is unable to get a f/u with Dr. Dela Cruz in a time sensitive manner, we can arrange follow-up with our service. Discussed with the patient and he is agreeable. Discussed w/hospital team. Urology will sign-off, please call with any questions/concerns or changes in patient status Admission and Anticipated Discharge Date Admission Date: February 14, 2025 Subjective Patient seen at bedside this morning. Awake and resting in bed. NAD. Denies any pain or discomfort. External cath draining clear yellow urine. Review of Systems Constitutional: as per Subjective / HPI Genitourinary: + as per Subjective / HPI Physical Exam Constitutional: no acute distress Respiratory: no respiratory distress and no labored breathing Neurologic: awake Psychiatric: A+Ox3, euthymic affect Genitourinary: External catheter in place Results & Data Vital Signs (Past 12 Hours) Vital Signs Temp Pulse Resp BP Pulse Ox O2 Del Method 11/12/25 07:30 Room Air 02/18/25 07:17 36.8 C 59 L 16 153/68 H 94 Room Air PG Care Time/CCT Total # of Minutes Spent Total Time Spent with Patient: Total time spent is greater than 50% in coordination of care (as documented) at patient's floor/unit and/or counseling patient: Coding Level of Care Code 67053 SUB INP/OBS CARE 2/35MIN Diagnoses Complicated urinary tract infection N39.0 Ureteral stent present Z96.0
--- NOTE | 2025-02-18 14:49 | Infectious Disease Consult ---
Date of Consultation February 18, 2025 Assessment & Plan (1) Bacteremia due to Enterobacter species: Plan Problems: #Recent Kleb aerogenes bacteremia #BPH s/p Aquablation 12/15/24 c/b hydronephrosis s/p L nephrostomy tube (01/01/25, now removed), L ureteral stent (01/27/25) Micro: 02/14 BCx x2: NGTD 02/14 UCx: NG Abx: Ceftriaxone 02/14 Levofloxacin 02/15 - 02/17 84 yo M with BPH s/p Aquablation 12/15/24, CKD, CAD, T2DM, anemia, gout who presented on 02/14 with generalized weakness. About 1.5 weeks after his Aquablation, he presented to [facility] on 12/27 with gross hematuria resulting in anemia requiring transfusion of 4 U pRBCs. During his hospitalization, was diagnosed with a new RLE DVT. Also found to have KAYLA for which nephrology considered renal biopsy vs steroids. Was transferred to [facility] 12/27. CT A/P with L sided hydronephrosis, perinephric fat stranding in L renal sinus may be related to lateral edema from hydronephrosis however pyelonephrosis cannot be excluded. Urology took pt to the OR on 12/31/24 for attempted L ureteral stent placement which was unable to be completed because of a large subtrigonal false passage and necrotic tissue involving a significant portion of the bladder. Therefore, pt underwent L nephrostomy tube placement with IR on 01/01. For his KAYLA, pt was given 3 day course of pulse dose steroids, followed by transition to prednisone 60 mg daily for suspected AIN. No renal biopsy was ultimately performed as Cr returned to baseline. Had IVC filter placed due to DVT and risks of bleeding with anticoagulation. He was discharged 01/07/25. On 01/27, underwent cystoscopy, appears nephrostomy tube was removed and L ureteral stent was placed at that time. Morgan catheter inserted. Pt admitted 02/08-02/11 with worsening generalized weakness, leukocytosis, KAYLA. CT A/P without contrast showed L ureteral stent partially retracted but no hydronephrosis. UCx and BCx from 02/08 grew Klebsiella aerogenes. He was treated with cefepime, and discharged on levofloxacin 750 mg PO q48h x 6 days. Repeat blood cultures from 02/10 negative. Did need 3 U pRBCs during this hospitalization. Now presenting 02/14 with generalized weakness. Denied fevers, or hematuria in the last few days. On presentation, pt was afebrile, VSS. Labs showed WBC 8.14, Cr 1.99, UA with >50 WBCs. CXR with no acute disease. Renal US with no hydronephrosis or renal masses. He was started on ceftriaxone 2 g IV q24h, then resumed on levofloaxcin 750 mg PO q48h. Discussion: Unclear initial cause of Kleb aerogenes bacteremia on 02/08, but per OSH dc summary, CT A/P without contrast showed only L ureteral stent partially retracted but no hydronephrosis. Wtih both urine and blood cultures growing Kleb aerogenes, concerned for urinary source. It appears pt has clinically improved, with repeat blood cultures 02/10 NG, and blood and urine cultures here without growth. Recommendations: - Ok to discontinue antibiotics. It appears he has gotten ~10 day course of antibiotics for Klebsiella aerogenes bacteremia, thought to be from urinary source. 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 Consultation Information This patient recommendation is based on a telemedicine consult request which was completed asynchronously through chart review and information provided by the primary physician. The patient was not seen or examined today. The evaluation is consultative in nature and all patient care and treatment decisions can either be accepted or rejected by the patient's primary hospital-based treating physician using their own independent medical judgment for their patient. English As A Second Language Instructor contact information: Please call [facility] Center [phone]. (Phone Number For Physician Use Only) Time Spent Reviewing Chart: 31+ minutes History of Present Illness Reason for Consultation: Recent enterobacter bacteremia Attending Physician: Byron Pardo History of Present Illness 84 yo M with BPH s/p Aquablation 12/15/24, CKD, CAD, T2DM, anemia, gout who presented on 02/14 with generalized weakness. About 1.5 weeks after his Aquablation, he presented to [facility] on 12/27 with gross hematuria resulting in anemia requiring transfusion of 4 U pRBCs. During his hospitalization, was diagnosed with a new RLE DVT. Also found to have KAYLA for which nephrology considered renal biopsy vs steroids. Was transferred to [facility] 12/27. CT A/P with L sided hydronephrosis, perinephric fat stranding in L renal sinus may be related to lateral edema from hydronephrosis however pyelonephrosis cannot be excluded. Urology took pt to the OR on 12/31/24 for attempted L ureteral stent placement which was unable to be completed because of a large subtrigonal false passage and necrotic tissue involving a significant portion of the bladder. Therefore, pt underwent L nephrostomy tube placement with IR on 01/01. For his KAYLA, pt was given 3 day course of pulse dose steroids, followed by transition to prednisone 60 mg daily for suspected AIN. No renal biopsy was ultimately performed as Cr returned to baseline. Had IVC filter placed due to DVT and risks of bleeding with anticoagulation. He was discharged 01/07/25 On 01/27, underwent cystoscopy, appears nephrostomy tube was removed at that time. Morgan catheter inserted. Pt admitted 02/08-02/11 with worsening generalized weakness, leukocytosis, KAYLA. CT A/P without contrast showed L ureteral stent partially retracted but no hydronephrosis. UCx and BCx from 02/08 grew Klebsiella aerogenes. He was treated with cefepime, and discharged on levofloxacin 750 mg PO q48h x 6 days. Repeat blood cultures from 02/10 negative. Did need 3 U pRBCs during this hospitalization. Now presenting 02/14 with generalized weakness. Denied fevers, or hematuria in the last few days. On presentation, pt was afebrile, VSS. Labs showed WBC 8.14, Cr 1.99, UA with >50 WBCs. CXR with no acute disease. Renal US with no hydronephrosis or renal masses. He was started on ceftriaxone 2 g IV q24h, then resumed on levofloaxcin 750 mg PO q48h. Allergies Allergy/AdvReac Type Severity Reaction Status Date / Time codeine Allergy Unknown Verified 02/14/25 15:29 Home Medications Medication Instructions Recorded Confirmed Type allopurinol 100 mg tablet 100 mg PO DAILY 02/19/20 02/14/25 History aspirin 81 mg chewable tablet 81 mg PO DAILY 02/19/20 02/14/25 History cholecalciferol (vitamin D3) 125 125 mcg PO DAILY 02/19/20 02/14/25 History mcg (5,000 unit) capsule (Dialyvite Vitamin D) folic acid 400 mcg tablet 0.4 mg PO DAILY 02/19/20 02/14/25 History magnesium oxide 500 mg capsule 500 mg PO DAILY 02/19/20 02/14/25 History mecobalamin (vitamin B12) 1,000 1,000 mcg PO WK 02/19/20 02/14/25 History mcg chewable tablet (B12 Active) pioglitazone 30 mg tablet 30 mg PO QPM 02/19/20 02/14/25 History pyridoxine (vitamin B6) 50 mg 50 mg PO DAILY 02/19/20 02/14/25 History tablet insulin glargine 100 unit/mL (3 8 unit subcut BID PRN for sugar 02/14/25 02/14/25 History mL) subcutaneous pen (Lantus level Solostar U-100 Insulin) insulin lispro 100 unit/mL 8 unit subcut QPM 02/14/25 02/14/25 History subcutaneous pen isosorbide mononitrate 30 mg 30 mg PO DAILY 02/14/25 02/14/25 History tablet,extended release 24 hr levofloxacin 750 mg tablet 750 mg PO Q48H 02/14/25 02/14/25 History lisinopril 10 mg tablet 10 mg PO DAILY 02/14/25 02/14/25 History metformin 500 mg tablet,extended 500 mg PO BID 02/14/25 02/14/25 History release 24 hr nystatin 100,000 unit/mL oral 5 ml PO QID 02/14/25 02/14/25 History suspension rosuvastatin 20 mg tablet 20 mg PO QPM 02/14/25 02/14/25 History Patient History Medical History (Updated 02/18/25 @ 10:25 by Kris Gu MD) Ureteral stent present left Presence of IVC filter Cholecystectomy planned 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 Surgical History H/O heart artery stent Family History Father Lung cancer Social History Smoking Status: Former smoker Hx Alcohol Use: No Hx Substance Use: No Preferred Language: [place]i Communication Ability: Effective Electron Beam Photo Mask Maker Required: No Beliefs That Will Affect Care: None Current Living Situation: Spouse Feels Safe at Home: Yes Assistive Devices: Cane and Walker Results & Data Vital Signs (Past 12 Hours) Vital Signs Temp Pulse Resp BP Pulse Ox O2 Del Method 02/18/25 07:30 Room Air 02/18/25 07:17 36.8 C 59 L 16 153/68 H 94 Room Air
[2025-02-18] MEDS: ACETAMINOPHEN 325 MG TAB PO PRN (21:53)
[2025-02-19 06:52] LABS: Hematocrit (blood only) 28.2 % (42.0-52.0); Hemoglobin 9.0 g/dL (14.0-18.0); Immature Granulocytes # (auto) 0.07 K/uL (0.01-0.20); Immature Granulocytes % (auto) 0.9 %; Mean Corpuscular Hemoglobin 30.5 pg (25.0-34.0); Mean Corpuscular Volume 95.6 fL (80.0-100.0); Platelet Count 185 K/uL (130-400); RDW Standard Deviation 61.8 fL (36.4-46.3); Red Blood Count 2.95 M/uL (4.70-6.10); White Blood Count 7.45 K/ul (4.8-10.8)
[2025-02-19 07:06] LABS: Anion Gap 5.0 (3-11); Blood Urea Nitrogen 29.0 mg/dl (6-23); Calcium 8.0 mg/dl (8.6-10.3); Carbon Dioxide 26.0 mmol/L (21-32); Chloride 108.0 mmol/L (98-107); Creatinine Clr Calc Pharmacy 35.9 ml/min; Glucose 125.0 mg/dl (70-99(Fasting)); Potassium 4.2 mmol/L (3.5-5.1); Sodium 139.0 mmol/L (136-145)
[2025-02-19 07:10] VITALS: RESP 17; TEMP 98.4; O2SAT 98
[2025-02-19 08:47] VITALS: BP 131/78; PULSE 62
--- NOTE | 2025-02-19 13:38 | Discharge Summary ---
Discharge Summary Date of Service February 19, 2025 Principal Dx & Hospital Course #1 = Principal Diagnosis (1) Bacteremia due to Enterobacter species: Positive blood cultures on 02/08 with Enterobacter aerogenes. Negative blood cultures on 02/10. Urine culture on 02/08/2025 also positive for Enterobacter aerogenes. Patient was discharged with levofloxacin on 02/11/2025 from [facility]. CT a/p (unknown date) reportedly without abscess. -NGTD on BC/UC from 02/14/25 -Levofloxacin 750 mg PO QOD (renal dosing) for Enterobacter/Klebsiella aerogenes which has inducible ampC resistance, according to external records patient received dose of Levaquin on discharge day of 02/11/2025 from [facility] with prescription for Levaquin 750 mg every other day x 3 doses for 6 days upon d/c-->>with dosing of Levaquin on 02/11/25 from [facility] in conjunction home dose on 02/13/25 with dosing during this hospital stay on 02/15/25 & 02/17/25 patient has completed course of recommended antibiotic therapy -secured records from [facility] with d/c diagnosis on 02/11/25 of sepsis with Enterobacter aerogenes bacteremia due to acute cystitis with hematuria possibly related to ureteral stent -ID consult with recommendation that patient have no additional antibiotic therapy as he has completed his full course of Levaquin (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 Dela Cruz of [facility]. Patient reports he had a left nephrostomy tube in 01/2025. Presently reports he has a left ureteral stent placed (by Dr. Dela Cruz) which was placed when the left nephrostomy tube was removed. Plan had been to take stent out on 02/09/2025, but he was in the hospital. HOWEVER, renal u/s on 02/14/2025 shows RIGHT renal tubular structure, most likely a stent. Unsure which side patient had stent as he does have a small incision site on left flank where I presume his LEFT nephrostomy tube was. U/s showed NO hydronephrosis or bladder distension -Urology consulted with no surgical intervention recommendations and will maintain on consult peripherally -renal ultrasound on 02/14/2025 with no evidence of hydronephrosis or renal masses, right renal tubular echogenic structure, most likely a stent, KUB complete on 02/16/2025 to confirm IVC filter placement with noted LEFT nephroureteral stent in place, discussed imaging results with radiology and higher sensitivity appreciation with KUB imaging for confirms stent placement on the left versus renal ultrasound with possible right stent-->> external records reviewed from [facility] and operative report from Dr. Dela Cruz with proper placement of left ureteral stent on 01/27/2025 -discussed with [facility] urology team regarding case in setting of recent Enterobacter bacteremia and potential cause r/t left stent placed per Dr. Dela Cruz and as patient is stable he can f/u with Dr. Dela Cruz for evaluation of stent and if he is unable to get a f/u with Dr. Dela Cruz in a time sensitive manner [facility] is willing to see patient within 2-3 weeks to determine next steps -PSA WNL -f/u with Dr. Dela Cruz on d/ and if unable to secure appt. f/u with [facility] within 2 weeks (3) Complicated urinary tract infection: See above (4) Chronic kidney disease (CKD): Baseline Cr ~1.8. Cr on admission was 1.99, so no acute renal failure, but higher than priors. Back to baseline Cr of 1.8 on 02/15/2025. -Avoid IV fluids for now with edema (probably dependent as he has no hx of CHF) -Monitor Cr-->>1.74 -Dose meds for CrCl 30-35 -Metformin decreased to 500mg daily upon discharge for Cr. of 1.67 (5) Anemia: Hgb on admission was 9.9. Normocytic. Likely acute blood loss anemia and poor bone marrow response. Has needed 7 units of blood in the last month. Most recent transfusions was 02/11/2025. NO signs of active bleeding. -Will defer iron studies given recent transfusions -Transfuse for hgb < 7 -H/H on d/c 9.0/28.2 (6) Diabetes: Glucose ranges were 135 - 235 at [facility] last admission. Per report, HgbA1c was 6.1% on 12/24/2024. -Sliding scale insulin in the hospital -decrease Metformin dose at home at 500mg daily, resume Actos -resume long acting insulin and as needed short acting insulin at home (7) Coronary artery disease: S/p CABG in 1992. Unknown surgeon or number of vessels. Reports he "has some stents in there too." No present chest pain, no angina symptoms. -home statin on d/c, aspirin on held as Eliquis initiated for DVT, considering recent bouts of bleeding and hematuria will defer to PCP to monitor H/H on d/c for resumption of aspirin (8) Gout: Reports a possible flare of gout at [facility], but nothing at this time. -Continue home allopurinol -uric acid 3.6 (9) Thrush, oral: Likely due to prolonged courses of abx. -Continue nystatin swish and swallow (10) DVT (deep venous thrombosis): Diagnosed on 12/24/2024. I suspect he had significant bleeding given the multiple transfusions needed over the last 5 weeks. [facility] Bilateral LE Dopplers on 02/14/2025 showed no left DVT and POSSIBLE right proximal femoral vein thickening vs. non-occlusive thrombus -patient confirms he was never initiated on DOAC as [facility] with noted hematuria and anemia requiring multiple blood transfusions when DVT diagnosed -Added SCDs on 02/15/2025 -No urological surgical intervention anticipated per urology consult therefore patient candidate for DOAC as BL LE dopplers on 02/14/25 revealed possible right proximal femoral vein thickening -KUB to confirm IVC filter placement -Eliquis 2.5mg po BID as bilateral dopplers show possible right non-occlusive thrombus on 02/14/25, patient without acute signs of bleeding or hematuria, will monitor CBC, HOLD aspirin for now to monitor for bleeding as patient is on for secondary prevention related to hx of CABG and cardiac stents -Pharmacy voucher provided for Eliquis prescription -f/u with PCP in one week (11) Weakness: Generalized weakness-possibly multifactorial related to recent hospitalizations and anemia -PT/OT ordered - PT on d/c Plan DNR/DNI - Patient noted this in presence of and other family. Able to make this decision. Notes For Next Care Provider Patient was started on Eliquis 2.5mg po BID during hospitalization due to DVT in right leg-->he does already have IVC filter placement from [facility] Metformin dosing decreased to 500mg po daily due to eGFR of 35.9 Aspirin on hold to monitor bleeding status with recent several blood transfusion and hospitalizations Completed course of Levaquin 750mg every 48 hours X 3 doses for recent Enterobacter bacteremia Close follow up with Dr. Dela Cruz or [facility] for left stent discontinuation Medication Changes From Visit Add Eliquis 2.5mg po BID Decrease Metformin to 500mg po daily Admission HPI Per Admitting Provider 84 yo M w/ hx of BPH, CKD Stage 3, anemia, and gout who presents with generalized weakness. He has an extremely complex PMH recently. He had a "steam ablation" with Dr. Dela Cruz of [facility] on 12/15/2024. He was in the hospital for 2 days, then discharged with a Morgan catheter in place. He returned to Dr. Dela Cruz about 1 week later and had the Morgan catheter removed. He went to the hospital the day after the Morgan catheter was removed with generalized weakness. He was found to be in urinary retention and apparently had left hydronephrosis. He had a cystoscopy, but it appears they were unable to visualize the left ureteral orifice because he then required a left nephrostomy tube which he reports was inserted on 01/27/2025. At that point, I believe [facility] was [facility] He was also noted to have a right posterior tibial vein DVT which was diagnosed on 12/24/2024. Because of a large amount of bleeding, he had an IVC filter placed. The patient indicated to me that it was after he had the nephrostomy tube; however, I think it must have been before. Either that or he was on anticoagulation for some time, as he reports he's needed 7 units of blood over the last 6 weeks. He was discharged and was home for only a few days, then went to [facility] with weakness. He was at [facility] from Sunday until Sunday. Reviewing the discharge summary, it appears he actually had Enterobacter aerogenes bacteremia, likely due to the issues. He had 2/2 blood cultures positive for bacteria on 02/08, with negative blood cultures on on 02/10. At this time, he reports ongoing weakness. His example is that this morning, he was only able to stand long enough to pour some cereal and then had to go sit down for at least 30 minutes. He reports some chills, but no fevers. He reports some occ constipation. He reports no fevers, denies n/v, denies hematuria in the last few days, denies chest pain or shortness of breath, denies abdominal pain. Discharge Exam GENERAL APPEARANCE: A&O. Lying in bed comfortably. NAD. SKIN: Normal color without rashes or lesions. Normal turgor. HEENT: Head AT/NC. Buccal mucosa is moist and pink with noted white coating to tongue. NECK: No jugular venous distention. No thyroid enlargement. There is no lymphadenopathy. HEART: RRR without m/g/r LUNGS: Normal inspiratory effort. CTA without w/r/r ABDOMEN: No guarding or rigidity. Normoactive BS in all four quadrants. Abdomen soft and NT. : External cath with clear, yellow urine draining in bag. MSK: No bony gross/deformities throughout. ROM intact. EXTREMITIES: No edema, No peripheral cyanosis. Neuro: CN 2-12 grossly intact. No focal neuro deficits PSYCHIATRIC: Normal affect. Eye contact is good. Speech is normal rate and content. Responses are appropriate. Discharge Plan Discharge Items Patient Disposition: Home - Home Health Services Reason For Visit: URINARY TRACT INFECTION Discharge Diagnosis: Urinary tract infection, BPH Condition on Discharge: Good Activity: Resume your previous activity Bathing: No limitations Driving/Machine Use: No limitations Weightbearing: Full weightbearing Non-emergency contact: Primary Care Provider Call non-emergency contact if: you have any medication questions, your symptoms worsen, your pain is not controlled, your pain is concerning for you and you have a fever Follow-up/Referrals: Mickie Hutchins CRNP [Nurse Practitioner] - (If you need to secure an appointment please call office to be seen in 2 weeks if unable to see Dr. Dela Cruz) Dominguez Dela Cruz DO [Outside Practitioners] - (We are calling to attempt to secure you an appointment~please follow up with office in 2 weeks. In the event you are unable to secure an appointment or would like to switch your care to [facility] you can notify the office and they will secure you an appointment in 2 weeks if needed) Lisa Cheek CRNP [Primary Care Provider] - 03/13/25 8:20 am Diet: Carb Consistent or DM2 Addtl Attending Provider Instructions: Mr. Hartman, You were hospitalized for urinary tract infection and weakness. You completed a course of antibiotic called Levaquin that was recommended from y our previous hospitalization at [facility] for a blood stream infection. Please do not take Levaquin at home that was previously filled as it is not necessary. During your course of hospitalization, it was identified you no longer have a bloodstream infection or urinary infection. Your blood cultures and urine culture were negative. We did additional imaging on your legs to identify if you had a blood clot present and it was discovered you still have on the right side. You do have a filter in place to prevent you from having the blood clot move to your lungs. Considering you still have a clot in the right leg, you were started on a blood thinner called Eliquis and will continue this when you are discharged. We started you on a lower dose considering your age and kidney function. You were provided with a one month voucher to financially assist you with the cost of this medication as it is expensive. You did well with physical therapy while you were hospitalized and they recommen ded follow up therapy in your home and that will be arranged for you. It is important you follow up with Dr. Dela Cruz in a timely manner for management of your left ureteral stent. We are attempting to contact the office and make this appointment for you. If you are unable to follow up with Dr. Dela Cruz, [facility] is willing to see you in the office for management in 2 weeks as they did see you while you were hospitalized. Due to your kidney function, your home Metformin dosing will be decreased to 500mg daily. You already have this medication at home. Again, instead of taking this medication twice per day, only take it ONCE daily. It is also being recommended you hold your aspirin as you had recent issues with bleeding from your bladder requiring several blood transfusions for stabilization. If at any time you develop any signs of bleeding please seek emergency treatment. Please make sure you follow up with your family doctor within one week of your discharge as you will need your kidney function lab and blood count lab assessed. Medications: Your medication list has been reviewed and reconciled upon discharge to ensure accuracy and continuity of care. An updated list of all your medications is included with your hospital discharge paperwork. Please review this list closely, and make note of any changes. We sent a new medication called Eliquis to your pharmacy. Take Eliquis 2.5mg two times a day. Start this medication this evening as you already received a morning dose on the day of discharge. Take your medications as instructed; do not skip a dose of your medicines. Make sure all of your doctors know every medicine you are taking (including suda-dty-rrbwbhe medicines, vitamins, and supplements). Call your primary care provider before taking any new medicines (including over- the-counter medicines, vitamins, and supplements), because some of these may interact with your current medications, or may make your symptoms worse. Tell your primary care provider if you cannot afford your medications. Activity: You can do normal everyday activities as your body allows. Take rest breaks if you feel tired. Do not overexert. Stop activity if you have pain, shortness of breath or feel dizzy. Follow-up appointments: Make an appointment with your primary care physician within one week of discharge. A copy of this summary will be sent to them. Every time you see your primary care physician, or any other doctor, bring your medication list, and a list of questions. CONTACT YOUR PRIMARY CARE PROVIDER if you experience any of the following: Shortness of breath or difficulty breathing Fevers or chills Feeling tired with normal activity or experiencing dizziness or fainting Difficulty following your treatment plan, or difficulty taking medications CALL 911 OR GO TO THE EMERGENCY DEPARTMENT if you experience any of the following: Severe abdominal pain or nausea/vomiting Severe chest pain, or chest pain that radiates (moves) to your jaw or arm Sudden, severe shortness of breath or difficulty breathing Thank you for allowing us to participate in your care. Pending Studies at Discharge: No Stand-Alone Forms: My [facility], Smoking Cessation Medications and DC Order Prescriptions: New Eliquis 2.5 mg Tablet 2.5 mg PO BID 30 Days Qty: 60 0RF Continued allopurinol 100 mg tablet 100 mg PO DAILY pioglitazone 30 mg tablet 30 mg PO QPM pyridoxine (vitamin B6) 50 mg tablet 50 mg PO DAILY folic acid 400 mcg tablet 0.4 mg PO DAILY B12 Active 1,000 mcg tablet,chewable 1,000 mcg PO WK cholecalciferol (vitamin D3) [Dialyvite Vitamin D] 125 mcg (5,000 unit) capsule 125 mcg PO DAILY magnesium oxide 500 mg capsule 500 mg PO DAILY nystatin 100,000 unit/mL suspension 5 ml PO QID Rx Instructions: for 10 days isosorbide mononitrate 30 mg tablet extended release 24 hr 30 mg PO DAILY lisinopril 10 mg tablet 10 mg PO DAILY rosuvastatin 20 mg tablet 20 mg PO QPM insulin glargine [Lantus Solostar U-100 Insulin] 100 unit/mL (3 mL) insulin pen 8 unit SUBCUT BID PRN (Reason: for sugar level) Rx Instructions: usually only takes 8 units in the evening depending on sugar level insulin lispro 100 unit/mL insulin pen 8 unit SUBCUT QPM Qty: 0 0RF Changed metformin 500 mg tablet extended release 24 hr 500 mg PO DAILY Qty: 0 0RF Discontinued aspirin 81 mg tablet,chewable 81 mg PO DAILY levofloxacin 750 mg tablet 750 mg PO Q48H Discharge Orders: Discharge Order (Routine); Ordered 02/19/25 Ordered By: Radha Zaragoza/Other Patient Handouts: Managing Type 2 Diabetes, DVT Dc Admission Data Admit Date/Time: 02/14/25 17:13 Attending Provider: Byron Pardo Admit Provider: Markel Miramontes Primary Care Provider: Lisa Cheek Other Providers: Akash Samano; [facility],Home [facility]; Zamzam Briones Other Interventions: Discharge Summary Assessment (RN) Last Done: 02/19/25 12:46 Hospital Stay Data Consultations 02/14/25 16:12 ED Decision to Admit Stat 02/14/25 20:12 Consult Urology Routine 02/18/25 09:43 Consult Infectious Diseases Routine Diagnostic Imagining Performed 02/14/25 17:13 US Renal Bladder [US renal/blad retro comp] Routine 02/14/25 20:12 US venous doppler LE BI Urgent Pending Results Patient Have Any Pending Studies at Discharge: No Discharge Instructions Given to Patient (Per Discharging Provider) Mr. Hartman, You were hospitalized for urinary tract infection and weakness. You completed a course of antibiotic called Levaquin that was recommended from your previous hospitalization at [facility] for a blood stream infection. Please do not take Levaquin at home that was previously filled as it is not necessary. During your course of hospitalization, it was identified you no longer have a bloodstream infection or urinary infection. Your blood cultures and urine culture were negative. We did additional imaging on your legs to identify if you had a blood clot present and it was discovered you still have on the right side. You do have a filter in place to prevent you from having the blood clot move to your lungs. Considering you still have a clot in the right leg, you were started on a blood thinner called Eliquis and will continue this when you are discharged. We started you on a lower dose considering your age and kidney function. You were provided with a one month voucher to financially assist you with the cost of this medication as it is expensive. You did well with physical therapy while you were hospitalized and they recommended follow up therapy in your home and that will be arranged for you. It is important you follow up with Dr. Dela Cruz in a timely manner for management of your left ureteral stent. We are attempting to contact the office and make this appointment for you. If you are unable to follow up with Dr. Dela Cruz, [facility] is willing to see you in the office for management in 2 weeks as they did see you while you were hospitalized. Due to your kidney function, your home Metformin dosing will be decreased to 500mg daily. You already have this medication at home. Again, instead of taking this medication twice per day, only take it ONCE daily. It is also being recommended you hold your aspirin as you had recent issues with bleeding from your bladder requiring several blood transfusions for stabilization. If at any time you develop any signs of bleeding please seek emergency treatment. Please make sure you follow up with your family doctor within one week of your discharge as you will need your kidney function lab and blood count lab assessed. Medications: Your medication list has been reviewed and reconciled upon discharge to ensure accuracy and continuity of care. An updated list of all your medications is included with your hospital discharge paperwork. Please review this list closely, and make note of any changes. We sent a new medication called Eliquis to your pharmacy. Take Eliquis 2.5mg two times a day. Start this medication this evening as you already received a morning dose on the day of discharge. Take your medications as instructed; do not skip a dose of your medicines. Make sure all of your doctors know every medicine you are taking (including wpnd-saa-kbnzayj medicines, vitamins, and supplements). Call your primary care provider before taking any new medicines (including over- the-counter medicines, vitamins, and supplements), because some of these may interact with your current medications, or may make your symptoms worse. Tell your primary care provider if you cannot afford your medications. Activity: You can do normal everyday activities as your body allows. Take rest breaks if you feel tired. Do not overexert. Stop activity if you have pain, shortness of breath or feel dizzy. Follow-up appointments: Make an appointment with your primary care physician within one week of discharge. A copy of this summary will be sent to them. Every time you see your primary care physician, or any other doctor, bring your medication list, and a list of questions. CONTACT YOUR PRIMARY CARE PROVIDER if you experience any of the following: Shortness of breath or difficulty breathing Fevers or chills Feeling tired with normal activity or experiencing dizziness or fainting Difficulty following your treatment plan, or difficulty taking medications CALL 911 OR GO TO THE EMERGENCY DEPARTMENT if you experience any of the following: Severe abdominal pain or nausea/vomiting Severe chest pain, or chest pain that radiates (moves) to your jaw or arm Sudden, severe shortness of breath or difficulty breathing Thank you for allowing us to participate in your care. Supervising Physician Co-Signing Physician Notes During face to face encounter, I obtained a brief physical examination, discussed hospital stay with patient and discharge instructions with patient. I discussed discharge plan of care with MARY Dawson. I reviewed above note and agree with it except for the following: Patient completed antibiotics for his bacteremia. Agree with discharge instructions Total Time Total Time Spent Total Time Spent (In Minutes): I spent a total of 50 minutes on the date of service in review of patient's record, and previously obtained information in person and appropriate medical visit, discussion and education of plan, with patient and/or caregiver, placing orders for tests/referral/procedures as medically necessary and documentation of pertinent clinical information in patient's medical records for their visit today. 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 Chronic kidney disease stage: stage 3 (moderate) Chronic kidney disease stage 3 subtype: stage 3b (GFR 30-44) Iron deficiency anemia due to chronic blood loss D50.0 Anemia type: iron deficiency Iron deficiency anemia type: chronic blood loss Type 2 diabetes mellitus with stage 3b chronic kidney disease, 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; N18.32 Chronic kidney disease stage: stage 3 (moderate) Chronic kidney disease stage 3 subtype: stage 3b (GFR 30-44) Diabetes mellitus complication detail: with chronic kidney disease Diabetes mellitus complication status: with kidney complications Diabetes mellitus residential insulin use: without computer terminal operator use Diabetes mellitus type: type 2 Coronary artery disease involving [place] heart without angina pectoris, uns pecified vessel or lesion type I25.10 Associated angina: without angina Coronary Disease-Associated Artery/Lesion type: unspecified vessel or lesion type [place] vs. 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
--- NOTE | 2025-02-20 10:09 | Coding Query ---
CODING QUERY To promote full compliance with coding requirements relating to patient care, provider participation is requested in all cases of [facility] uncertainty. Please assist us with the question(s) below: In the record, it states that the patient has a Complicated UTI. Please clarify below the cause of the UTI if applicable. Thank you. ( ) Urinary cath/device was the cause of the UTI. Please specify the urinary device: ( ) UTI, unspecified cause. ( x ) UTI is likely postprocedural complication of the aquablation procedure that had been done ( ) Other (Specify): Principal Diagnosis: "that condition established after study, to be chiefly responsible for occasioning the admission of the patient to the hospital for care." Co-Existing Principal Diagnosis: "when two or more diagnoses equally meet the criteria for principal diagnosis as determined by the circumstances of admission, diagnostic work up, and/or therapy provided, and the Alphabetic Index, Tabular List, or another coding guideline does not provide sequencing direction, any one of the diagnoses may be sequenced first." "When the physician has documented what appears to be a current diagnosis in the body of the record, but has not included the diagnosis in the final diagnostic statement, the physician should be asked whether the diagnosis should be added." (Source [facility] 2 QTR90. p3-4) NIC
== END 2025-02-19 13:30 | disposition home health service (06) | DRG 863 ==
LOC: SUATTDRO → ED 12:46 → SUATTDRO 17:13 → 3N 17:13
DX: Z96.0 Presence of urogenital implants; Z95.1 Presence of aortocoronary bypass graft; N18.30 Chronic kidney disease, stage 3 unspecified; Z87.440 Personal history of urinary (tract) infections; Z79.84 Long term (current) use of oral hypoglycemic drugs; Y83.8 Other surgical procedures as the cause of abnormal reaction of the patient, or of later complication, without mention of misadventure at the time of the procedure; T36.95XA Adverse effect of unspecified systemic antibiotic, initial encounter; T81.40XA Infection following a procedure, unspecified, initial encounter; I25.812 Atherosclerosis of bypass graft of coronary artery of transplanted heart without angina pectoris; Z86.19 Personal history of other infectious and parasitic diseases; B37.0 Candidal stomatitis; N39.0 Urinary tract infection, site not specified; R39.9 Unspecified symptoms and signs involving the genitourinary system; M10.9 Gout, unspecified; Z66 Do not resuscitate; Z79.82 Long term (current) use of aspirin; E11.22 Type 2 diabetes mellitus with diabetic chronic kidney disease; Z79.4 Long term (current) use of insulin; D62 Acute posthemorrhagic anemia; Z95.828 Presence of other vascular implants and grafts; I82.401 Acute embolism and thrombosis of unspecified deep veins of right lower extremity; N40.1 Benign prostatic hyperplasia with lower urinary tract symptoms; Z88.5 Allergy status to narcotic agent; Z79.899 Other long term (current) drug therapy